=== PATIENT | female | born 1995 | race American Indian/Alaskan Native ===

== ENCOUNTER 2016-04-16 17:25 | Emergency (ER) | payer MEDICAID ==
[2016-04-16 18:17] LABS: Basophils % (Auto) 0.3 % (0.0-1.8); Eosinophils % (Auto) 3.1 % (0.0-4.3); Hematocrit 40.9 % (30.3-42.9); Hemoglobin 13.5 gm/dl (10.1-14.3); Mean Corpuscular HGB Conc 33 % (30-34); Mean Corpuscular Hemoglobin 31 pg (28-32); Mean Corpuscular Volume 95 fl (79-97); Platelet Count 289 K/mm3 (140-440); Red Blood Count 4.33 M/mm3 (3.65-5.03); Red Cell Distribution Width 13.8 % (13.2-15.2); White Blood Count 6.6 K/mm3 (4.5-11.0)
[2016-04-16 18:39] LABS: Alanine Aminotransferase 16 units/L (7-56); Albumin 4.1 g/dL (3.9-5); Albumin/Globulin Ratio 1.5 %; Alkaline Phosphatase 54 units/L (35-129); BUN/Creatinine Ratio 12.85; Bilirubin,Total 0.8 mg/dL (0.1-1.2); Blood Urea Nitrogen 9 mg/dL (7-17); Carbon Dioxide 28 mmol/L (22-30); Chloride 104.6 mmol/L (98-107); Glucose 89 mg/dL (65-100); Lipase 18 units/L (13-60); Potassium 4.1 mmol/L (3.6-5.0); Sodium 142 mmol/L (137-145); Total Protein 6.8 g/dL (6.3-8.2)
[2016-04-16 18:48] LABS: Anion Gap 14 mmol/L
[2016-04-16 20:08] LABS: Bilirubin,Urine NEG (Negative); Blood,Urine NEG (Negative); Ketones,Urine NEG (Negative); Leukocyte Esterase,Urine TR (Negative); Mucus,Urine 2+ /HPF; Nitrite,Urine NEG (Negative); Protein,Urine <15 mg/dL mg/dL (Negative)
[2016-04-17 04:42] VITALS: BP 126/64
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
== END 2016-04-17 07:10 | disposition home or self-care (01) ==
LOC: ED 17:25
DX: R10.30 Lower abdominal pain, unspecified (principal); F20.9 Schizophrenia, unspecified; Z91.14 Patient's other noncompliance with medication regimen; F31.9 Bipolar disorder, unspecified; F17.200 Nicotine dependence, unspecified, uncomplicated; F12.10 Cannabis abuse, uncomplicated; F14.10 Cocaine abuse, uncomplicated; Z91.040 Latex allergy status; Z91.018 Allergy to other foods
CPT/HCPCS: 36415; 80053; 81001; 83690; 84703; 85025; 87210; 87591; 99284

== ENCOUNTER 2016-12-30 15:26 | Emergency (ER) | payer MEDICAID ==
[2016-12-30 17:04] LABS: Basophils % (Auto) 0.5 % (0.0-1.8); Eosinophils % (Auto) 3.2 % (0.0-4.3); Hematocrit 41.3 % (30.3-42.9); Hemoglobin 13.7 gm/dl (10.1-14.3); Mean Corpuscular HGB Conc 33 % (30-34); Mean Corpuscular Hemoglobin 31 pg (28-32); Mean Corpuscular Volume 94 fl (79-97); Platelet Count 250 K/mm3 (140-440); Red Blood Count 4.39 M/mm3 (3.65-5.03); Red Cell Distribution Width 13.4 % (13.2-15.2); White Blood Count 7.9 K/mm3 (4.5-11.0)
[2016-12-30 17:22] LABS: Anion Gap 15 mmol/L; BUN/Creatinine Ratio 10; Blood Urea Nitrogen 6 mg/dL (7-17); Carbon Dioxide 23 mmol/L (22-30); Chloride 104.9 mmol/L (98-107); Glucose 100 mg/dL (65-100); Potassium 3.3 mmol/L (3.6-5.0); Sodium 140 mmol/L (137-145)
[2016-12-30 17:51] LABS: Urine Drugs of Abuse Note Disclamer
[2016-12-30 18:11] LABS: Bilirubin,Urine NEG (Negative); Blood,Urine NEG (Negative); Ketones,Urine NEG (Negative); Leukocyte Esterase,Urine NEG (Negative); Mucus,Urine 3+ /HPF; Nitrite,Urine NEG (Negative); WBC,Urine < 1.0 /HPF (0.0-6.0)
[2016-12-30] MEDS ORDERED: BOOSTRIX IM ONE (22:20)
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
[2016-12-30 23:09] LABS: Salicylate < 0.3 mg/dL (2.8-20.0); Valproate < 2.8 ug/mL (50-100)
--- NOTE | 2016-12-31 00:53 | Ultrasound Report ---
FINAL REPORT PROCEDURE: US OB TRANSVAGINAL TECHNIQUE: Real-time transvaginal sonography of the uterus, placenta, amniotic fluid, adnexa, and fetus was performed with image documentation. Measurements were obtained to determine age/size. M-mode Doppler was used to document heartbeat. CPT 58103 HISTORY: COMPARISON: No prior studies are available for comparison. FINDINGS: Small cystic fluid collection is seen in the endometrial canal near the fundus. There appears to be a double decidual reaction. pole and heartbeat are not identified. It may be too early to visualize these structures. Yolk sac is not visualized. Mean gestational sac measurement is 7.3 millimeters corresponding to an age of 5 weeks 3 days. No evidence of subchorionic hemorrhage. No uterine masses are identified. Right and left ovaries are visualized. 1.2 centimeters cyst visualized in the right ovary may represent corpus luteum cyst of the left ovary is unremarkable.. The right ovary measures 3.6 x 3.0 x 2.8 centimeter. The left ovary measures 2.8 x 2.0 x 2.1 centimeter. There is no evidence of subchorionic hemorrhage. IMPRESSION: A gestational sac appears to be present. By crown-rump length measurement estimated age is 5 weeks 3 days. pole heartbeat and yolk sac are not visualized. It may be too early to visualize the structures. I would suggest a follow-up ultrasound 7-10 days to evaluate for living intrauterine . Small cystic change visualize right ovary as described may represent corpus luteum cyst of . Ovaries are otherwise unremarkable.
--- NOTE | 2016-12-31 06:29 | Ultrasound Report ---
FINAL REPORT EXAM: US OB \T\lt; = 14 WEEKS FETUS HISTORY: TECHNIQUE: Transabdominal imaging was obtained of the pelvis. FINDINGS: There is an intrauterine sac-like structure in the fundus of the uterus corresponding to a 5 week 3 day . An embryo and yolk sac are not yet identified. There is no evidence of subchorionic hemorrhage. The right ovary measures 2.5 cm x 1.4 cm x 3.3 cm. Within the right ovary is a 1.1 cm functional cysts most likely representing corpus luteum cyst. The left ovary is not seen on the transabdominal images. Free fluid is not seen. IMPRESSION: Intrauterine gestational sac corresponding to 5 week 3 day . An embryo no sac are not seen yet. Follow-up study recommended in 2 weeks to confirm an intrauterine .
--- NOTE | 2016-12-31 07:31 | XRay Report ---
AP AND LATERAL CERVICAL SPINE: History: Neck pain from self manipulation. The vertebral bodies are well mineralized and normal in alignment and vertebral height with well preserved interspace distances. The visualized portions of the posterior elements are normal. IMPRESSION: Normal study.
--- NOTE | 2016-12-31 13:02 | Consultation ---
History of Present Illness - Reason for Consult Reason for consult: SI Medications and Allergies Allergies Allergy/AdvReac Type Severity Reaction Status Date / Time mushroom Allergy Swelling Verified 02/12/16 15:48 latex AdvReac DRY MOUTH Verified 02/12/16 15:48 / LOCAL IRRITATION Home Medications Medication Instructions Recorded Confirmed Last Taken Type Benadryl CAP 50 mg PO HS PRN 02/26/16 02/26/16 Unknown History Divalproex Sodium [Depakote] 250 mg PO BID #60 tablet. 04/17/16 Unknown Rx Ibuprofen [Motrin] 600 mg PO Q8H PRN #30 tablet 04/17/16 Unknown Rx QUEtiapine [SEROquel] 100 mg PO HS #30 tablet 04/17/16 Unknown Rx Mental Status Exam - Vital signs Last Vital Signs Temp 98.4 F 12/31/16 09:31 Pulse 85 12/31/16 09:31 Resp 14 12/31/16 10:42 BP 95/51 12/31/16 09:31 Pulse Ox 99 12/31/16 10:42 Results Result Diagrams: 12/30/16 16:50 12/30/16 16:50 Abnormal lab results 12/30/16 12/30/16 12/30/16 Range/Units 16:50 16:50 17:40 [place] % (Auto) 9.0 H (0.0-7.3) % Potassium 3.3 L (3.6-5.0) mmol/L BUN 6 L (7-17) mg/dL Creatinine 0.6 L (0.7-1.2) mg/dL HCG, Quant (0-4) mIU/mL Ur Specific [place] 1.032 H (1.003-1.030) U Epithel Cells (Auto) 14.0 H (0-13.0) /HPF Salicylates (2.8-20.0) mg/dL Valproic Acid (50-100) ug/mL 12/30/16 12/30/16 Range/Units 22:20 22:20 [place] % (Auto) (0.0-7.3) % Potassium (3.6-5.0) mmol/L BUN (7-17) mg/dL Creatinine (0.7-1.2) mg/dL HCG, Quant 4896 H (0-4) mIU/mL Ur Specific [place] (1.003-1.030) U Epithel Cells (Auto) (0-13.0) /HPF Salicylates < 0.3 L (2.8-20.0) mg/dL Valproic Acid < 2.8 L (50-100) ug/mL All other labs normal. Assessment and Plan Assessment and plan: CHIEF COMPLAINT IN PATIENTS WORDS: HISTORY OF PRESENT ILLNESS: This is a 22-year-old female with a past psychiatric history of major depression now presents secondary to recent expression of suicidal thoughts with recent self-injurious behaviors via cutting herself on her forearms. Patient was brought into the hospital by her mother. Patient was fairly guarded during the interview and could not identify specific precipitating events that have worsened her symptoms of depression. Patient is currently estimated to be about 5 weeks secondary to serum beta hCG and ultrasound. Currently patient denies suicidal thoughts. PSYCHIATRIC REVIEW OF SYSTEMS: Substance: UDS - Detoxification/Withdrawal: none noted Depression: Withdrawn, isolated, low moods. [place]: no labile moods, not hyperverbal, no flight of ideas Psychosis: no AVH, no thought disorder noted, no paranoia/grandiosity/erotomania Anxiety/ OCD/ PTSD: denies somatic symptoms, flashbacks, nightmares, avoidance, panic attacks Suicidality: denies SI Other Self-Injurious Behavior: none currently, recent SIB noted Violent/ Aggressive Behavior: none noted CURRENT MEDICATIONS: per medication reconciliation ALLERGIES: NKDA PAST PSYCHIATRIC HISTORY: Inpatient: none reported Outpatient: none reported Prior Suicide Attempts: denies Prior Self-Injurious Behaviors: denies PAST PSYCHIATRIC MEDICATION TRIALS: Depakote, lithium and Prozac MEDICAL HISTORY: Positive test MENTAL STATUS EXAM: General Appearance: Dressed in hospital gown, no acute distress Sensorium/Consciousness: alert and responding to external stimuli Eye Contact: limited Attitude / Behavior: cooperative, but guarded Psychomotor & Musculoskeletal Activity: WNL Mood: fine Affect: constricted Speech / Language: normal Thought Processes: organized, logical, linear, goal directed Thought Content: no SI, no HI Perception: no AVH Orientation: person, place, time, situation Judgment What would you do if you smelled smoke in a crowded movie theater?: poor/impulsive Insight: poor Intelligence Vocabulary, general fund of knowledge, educational level: Average Capacity of ADLs: Independent STRENGTHS: PSYCHOSOCIAL AND ENVIRONMENTAL STRESSORS: ASSESSMENT: Major depression severe recurrent PLAN OF CARE: Refer patient for inpatient hospitalization Review possible pharmacologic interventions and there side effects given the status prior to starting any psychotropics
[2016-12-31] MEDS ORDERED: BENADRYL IM ONE (20:00)
[2016-12-31] MEDS ORDERED: BENADRYL ONE (20:01)
[2017-01-01] MEDS ORDERED: BENADRYL IM ONE (17:15)
[2017-01-01] MEDS ORDERED: BENADRYL ONE (17:37)
--- NOTE | 2017-01-01 21:49 | Progress Note ---
Subjective - Reason for Consult Reason for consult: passive SI Mental Status Exam - Vital signs Last Vital Signs Temp 98.6 F 01/01/17 10:00 Pulse 94 H 01/01/17 10:00 Resp 16 01/01/17 10:00 BP 97/63 01/01/17 10:00 Pulse Ox 100 01/01/17 10:00 Assessment and Plan NO longer expressing SI today. Unsure is she is homeless or if she can transition back to mother's care. Currently, she has been referred to inpatient level of care, but because she is transfer to inpatient hospital will take time. MENTAL STATUS EXAM: General Appearance: Dressed in hospital gown, no acute distress Sensorium/Consciousness: alert and responding to external stimuli Eye Contact: limited Attitude / Behavior: cooperative, but guarded Psychomotor & Musculoskeletal Activity: WNL Mood: fine Affect: constricted Speech / Language: normal Thought Processes: organized, logical, linear, goal directed Thought Content: no SI, no HI Perception: no AVH Orientation: person, place, time, situation Judgment What would you do if you smelled smoke in a crowded movie theater?: poor/impulsive Insight: poor Intelligence Vocabulary, general fund of knowledge, educational level: Average Capacity of ADLs: Independent ASSESSMENT: Major depression severe recurrent PLAN OF CARE: Refer patient for inpatient hospitalization Review possible pharmacologic interventions and there side effects with the patient given the status prior to starting any psychotropics
--- NOTE | 2017-01-02 14:30 | Progress Note ---
Subjective - Reason for Consult Reason for consult: recent SI Mental Status Exam - Vital signs Last Vital Signs Temp 99.2 F 01/01/17 22:00 Pulse 85 01/01/17 22:00 Resp 18 01/02/17 13:09 BP 111/77 01/01/17 22:00 Pulse Ox 98 01/02/17 13:09 Assessment and Plan No longer expressing SI today. business and services instructor to engage mother to determine if the patient can return home. No AVH. MENTAL STATUS EXAM: General Appearance: Dressed in hospital gown, no acute distress Sensorium/Consciousness: alert and responding to external stimuli Eye Contact: limited Attitude / Behavior: cooperative, but guarded Psychomotor & Musculoskeletal Activity: WNL Mood: fine Affect: constricted Speech / Language: normal Thought Processes: organized, logical, linear, goal directed Thought Content: no SI, no HI Perception: no AVH Orientation: person, place, time, situation Judgment What would you do if you smelled smoke in a crowded movie theater?: poor/impulsive Insight: poor Intelligence Vocabulary, general fund of knowledge, educational level: Average Capacity of ADLs: Independent ASSESSMENT: Major depression severe recurrent PLAN OF CARE: Rescind 1013 Refer to outpatient mental health services that can coordinate pharmacotherapy in the context of a
[2017-01-02 15:03] VITALS: BP 90/61
--- NOTE | 2017-01-02 15:36 | Emergency Department Report ---
Blank Doc - Documentation Documentation: I was asked to prepare discharge paperwork for this patient by the psychiatrist , Dr. Kenney. This patient was seen by Dr. Kenney today and he has rescinded the patient's temperature in. He does not feel that the patient has displayed any further suicidal ideations and is low risk for discharge to home. She will be given referrals for the [facility], [facility], the PRINCIPAL TECHNICAL WRITER and encouraged to follow up with any other recommendations/referrals given by the psychiatric team.
== END 2017-01-02 17:57 | disposition home or self-care (01) ==
LOC: ED 15:26 → EEVIPCON 15:26 → ED 01-02 17:57
DX: O99.341 Other mental disorders complicating pregnancy, first trimester (principal); F20.9 Schizophrenia, unspecified; F31.9 Bipolar disorder, unspecified; F17.210 Nicotine dependence, cigarettes, uncomplicated; F14.10 Cocaine abuse, uncomplicated; Z3A.01 Less than 8 weeks gestation of pregnancy
CPT/HCPCS: 36415; 72040; 76801; 76817; 80048; 80164; 80307; 81001; 84702; 84703; 85025; 90471; 90715; 96372; 99285; G0480; J1200; 80320

== ENCOUNTER 2017-06-13 20:45 | Emergency (ER) | payer SELFPAY ==
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
[2017-06-14 00:19] LABS: Basophils % (Auto) 0.4 % (0.0-1.8); Eosinophils # (Auto) 0.1 K/mm3 (0.0-0.4); Eosinophils % (Auto) 0.7 % (0.0-4.3); Hematocrit 35.4 % (30.3-42.9); Hemoglobin 11.9 gm/dl (10.1-14.3); Lymphocytes # (Auto) 2.2 K/mm3 (1.2-5.4); Lymphocytes % (Auto) 23.4 % (13.4-35.0); Mean Corpuscular HGB Conc 34 % (30-34); Mean Corpuscular Hemoglobin 32 pg (28-32); Mean Corpuscular Volume 97 fl (79-97); Monocytes # (Auto) 0.7 K/mm3 (0.0-0.8); Monocytes % (Auto) 7.1 % (0.0-7.3); Platelet Count 250 K/mm3 (140-440); Red Blood Count 3.67 M/mm3 (3.65-5.03); Red Cell Distribution Width 13.9 % (13.2-15.2)
[2017-06-14 00:44] LABS: BUN/Creatinine Ratio 23; Blood Urea Nitrogen 7 mg/dL (7-17); Calcium 7.9 mg/dL (8.4-10.2); Creatine Kinase MB 3.2 ng/mL (0.0-4.0); Hemolysis Index 4
--- NOTE | 2017-06-14 02:35 | Cat Scan Report ---
FINAL REPORT PROCEDURE: CT ANGIO CHEST TECHNIQUE: Computerized tomographic angiography of the chest was performed after the IV injection of iodinated nonionic contrast including image processing. The image data was postprocessed using 2-dimensional multiplanar reformatted (MPR) and 3-dimensional (MIP and/or volume rendered) techniques. HISTORY: chest pain, shortness of breath COMPARISON: No prior studies are available for comparison. FINDINGS: Heart and pericardium: Normal. Thoracic aorta: Normal. Pulmonary vasculature: There is no evidence of pulmonary arterial emboli. Lymph nodes: No enlarged thoracic lymph nodes. Lungs: Normal. Pleural space: No effusion, thickening, or pneumothorax. Musculoskeletal structures: No significant abnormality. Upper abdominal structures: No significant abnormality. IMPRESSION: Normal Examination
--- NOTE | 2017-06-14 03:14 | Ultrasound Report ---
FINAL REPORT EXAM: US OB FOLLOW UP HISTORY: patient with chest pain. TECHNIQUE: Transabdominal sonographic evaluation was performed of the female pelvis with and without color Doppler imaging. PRIORS: Prior ultrasound 12/30/2016. FINDINGS: Measurements: BPD: 6.8 centimeters, 27 week 2 day ([place]) HC: 24.9 centimeters, 27 weeks 0 days ([place]) AC: 22.7 centimeter, 27 week 1 day ([place]) FL: 5.4 centimeter, 28 week 3 day ([place]) HC/AC: 1-10 LALITHA: 9.8 centimeters (normal range 7-24 centimeters). EFW grams: 1094 FHR: 160 bpm Cervical length 3.25 centimeters (Within normal limits). GA (AUA): 27 week 3 day Cephalic presentation. Anterior placental position. IMPRESSION: Single, viable intrauterine as above. Appropriate amniotic fluid index. age by ultrasound criteria 27 weeks 3 days.
[2017-06-14 04:10] VITALS: BP 108/75
== END 2017-06-14 04:10 | disposition home or self-care (01) ==
LOC: ED 20:45
DX: O26.892 Other specified pregnancy related conditions, second trimester (principal); R07.89 Other chest pain; R51 Headache; R06.02 Shortness of breath; O99.342 Other mental disorders complicating pregnancy, second trimester; F31.9 Bipolar disorder, unspecified; F20.9 Schizophrenia, unspecified; F14.10 Cocaine abuse, uncomplicated; O99.332 Smoking (tobacco) complicating pregnancy, second trimester; F17.200 Nicotine dependence, unspecified, uncomplicated; O16.2 Unspecified maternal hypertension, second trimester; Z3A.27 27 weeks gestation of pregnancy; Z87.820 Personal history of traumatic brain injury; Z91.018 Allergy to other foods; Z91.040 Latex allergy status
CPT/HCPCS: 36415; 71275; 76816; 80048; 82550; 82553; 84702; 85025; 85379; 93005; 93010; 99284; Q9967

== ENCOUNTER 2017-06-16 18:43 | Emergency (ER) | payer MEDICAID ==
[2017-06-16 18:55] VITALS: BP 123/67
== END 2017-06-16 21:24 | disposition left against medical advice (07) ==
LOC: ED 18:43
DX: Z53.21 Procedure and treatment not carried out due to patient leaving prior to being seen by health care provider (principal)

== ENCOUNTER 2017-06-23 14:31 | Outpatient (CLI) | payer MEDICAID, OTHER ==
[2017-06-23 15:50] VITALS: BP 104/60
[2017-06-23 16:56] LABS: Bacteria,Urine 1+ /HPF (Negative); Bilirubin,Urine NEG (Negative); Blood,Urine NEG (Negative); Color,Urine Yellow (Yellow); Mucus,Urine 1+ /HPF; Protein,Urine <15 mg/dL mg/dL (Negative); WBC,Urine < 1.0 /HPF (0.0-6.0)
[2017-06-23] MEDS ORDERED: LACTATED RINGERS 500 ML IV ONE (17:00)
[2017-06-23 18:28] LABS: Amphetamine Screen,Urine PRESUMPTIVE NEGATIVE; Benzodiazepines Screen,Urine PRESUMPTIVE NEGATIVE; Cocaine Screen,Urine PRESUMPTIVE NEGATIVE; Methadone Screen,Urine PRESUMPTIVE NEGATIVE; Opiate Screen,Urine PRESUMPTIVE NEGATIVE
[2017-06-23 19:14] LABS: Cannabinoid Screen,Urine PRESUMPTIVE POSITIVE
== END 2017-06-23 18:29 | disposition home or self-care (01) ==
LOC: EDSTATUS 15:15 → TRG 15:28
PROVIDERS: ATTEND Obstetrics & Gynecology
DX: O99.333 Smoking (tobacco) complicating pregnancy, third trimester (principal); F17.200 Nicotine dependence, unspecified, uncomplicated; Z79.899 Other long term (current) drug therapy; Z3A.28 28 weeks gestation of pregnancy
CPT/HCPCS: 59025; 80307; 81001

== ENCOUNTER 2017-06-25 08:19 | Emergency (ER) | payer MEDICAID ==
[2017-06-25 08:59] LABS: Basophils % (Auto) 0.3 % (0.0-1.8); Eosinophils % (Auto) 0.4 % (0.0-4.3); Hematocrit 37.4 % (30.3-42.9); Hemoglobin 12.7 gm/dl (10.1-14.3); Lymphocytes # (Auto) 1.6 K/mm3 (1.2-5.4); Lymphocytes % (Auto) 18.3 % (13.4-35.0); Mean Corpuscular HGB Conc 34 % (30-34); Mean Corpuscular Hemoglobin 33 pg (28-32); Mean Corpuscular Volume 96 fl (79-97); Monocytes # (Auto) 0.7 K/mm3 (0.0-0.8); Monocytes % (Auto) 7.8 % (0.0-7.3); Platelet Count 278 K/mm3 (140-440); Red Cell Distribution Width 14.3 % (13.2-15.2)
[2017-06-25 09:09] LABS: BUN/Creatinine Ratio 10; Blood Urea Nitrogen 3 mg/dL (7-17); Calcium 8.2 mg/dL (8.4-10.2); Hemolysis Index 4
[2017-06-25 09:19] LABS: Bilirubin,Urine NEG (Negative); Blood,Urine NEG (Negative); Color,Urine Yellow (Yellow); Protein,Urine <15 mg/dL mg/dL (Negative); Urobilinogen,Urine < 2.0 mg/dL (<2.0); WBC,Urine < 1.0 /HPF (0.0-6.0)
[2017-06-25 09:27] LABS: Amphetamine Screen,Urine PRESUMPTIVE NEGATIVE; Benzodiazepines Screen,Urine PRESUMPTIVE NEGATIVE; Cocaine Screen,Urine PRESUMPTIVE NEGATIVE; Methadone Screen,Urine PRESUMPTIVE NEGATIVE; Opiate Screen,Urine PRESUMPTIVE NEGATIVE
[2017-06-25 09:49] LABS: Cannabinoid Screen,Urine PRESUMPTIVE POSITIVE
[2017-06-25 11:19] LABS: HCG Qualitative,Urine Positive (Negative)
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
--- NOTE | 2017-06-25 12:52 | Ultrasound Report ---
OB ULTRASOUND GREATER THAN 14 WEEKS INDICATION: , auditory hallucinations. Confirm viability. COMPARISON: 06/14/2017 TECHNIQUE: Transabdominal grayscale ultrasound with Doppler interrogation. Gestation: Fish Position: Cephalic Amniotic Fluid: WNL (7-24 cm) LALITHA = 8.9 cm Placenta: Anterior, right lateral Placental Grade: I Heart Rate: 140 BPM Cervical length: 3.6 cm (Normal > 3 cm) NEUROANATOMY VISUALIZED: Choroid Plexus Cisterna Magnum Cerebellum Lateral Ventricle ANATOMY VISUALIZED: Stomach Kidneys Bladder Diaphragm 4 Chamber Heart Heart 3 Vessel Cord Abd. Cord Insert SPINE VISUALIZED: Longitudinal Transverse Limited spine due to position BPD: 7.2 cm = 28 w 6 d HC: 27 cm = 29 w 3 d AC: 24.6 cm = 28 w 6 d FL: 5.8 cm = 30 w 2 d HC/AC Ratio: 1.1 Cephalic Index: 77.7 Estimated Weight: 1382 grams Clinical age = 29 w 0 d EDC: 09/10/2017 US Gest. Age = 29 w 3 d EDC: 09/07/2017 CONCLUSION: Single, viable intrauterine gestation with ultrasound estimated age of 29 weeks and 3 days and EDC of 09/07/2017, currently in cephalic lie with details, as above. Thank you for the opportunity to participate in this patient's care.
--- NOTE | 2017-06-25 14:04 | Consultation ---
History of Present Illness - Reason for Consult Consult date: 06/25/17 Reason for consult: Mental Health Evaluation Requesting physician: CARINA MENDOZA - Chief Complaint Chief complaint: "Something is going on" - History of Present Psychiatric Illness 22-year-old female presenting with a chief complaint of hallucinations and homicidal ideations. Today the patient is calm and cooperative, but disorganized during the assessment. She could not logically say why she came to the hospital when asked. She was tangent during the interview and had to be redirected several times to keep her on topic. She stated that her left leg is "broken" and that she hear voices in her ear and nose. On observation, the patient left leg isn't fractured. She denies SI/HI's and VH's. She denies recreational drug use, but positive for marijuana. She could not confirm or deny alcohol consumption (etoh). Medications and Allergies Allergies Allergy/AdvReac Type Severity Reaction Status Date / Time mushroom Allergy Swelling Verified 02/12/16 15:48 latex AdvReac DRY MOUTH Verified 02/12/16 15:48 / LOCAL IRRITATION Home Medications Medication Instructions Recorded Confirmed Last Taken Type Benadryl CAP 50 mg PO HS PRN 02/26/16 12/31/16 Unknown History Divalproex Sodium [Depakote] 250 mg PO BID #60 tablet. 04/17/16 12/31/16 Unknown Rx Ibuprofen [Motrin] 600 mg PO Q8H PRN #30 tablet 04/17/16 12/31/16 Unknown Rx QUEtiapine [SEROquel] 100 mg PO HS #30 tablet 04/17/16 12/31/16 Unknown Rx Past psychiatric history - Past Medical History Past Medical History: other (Currently ) Past Surgical History: No surgical history - past Psychiatric treatment and history psychiatric treatment history: Multiple inpatient psy settings. The patient cannot confirm or deny a fam psy hx. - Social History Social history: Lives alone Mental Status Exam - Vital signs Last Vital Signs Temp 98.6 F 06/25/17 08:32 Pulse 88 06/25/17 08:32 Resp 16 06/25/17 08:32 BP 118/78 06/25/17 08:32 Pulse Ox 99 06/25/17 08:32 - Exam Narrative exam: MSE: Appearance: calm Behavior: regular eye contact Speech: regular rate and tone Mood: "okay" Affect: normal Thought Process: tangential Thought Content: denies SI/HI's and VH's, delusional, disorganized Motor Activity: sitting up in bed Cognition: A/O x3 Insight: poor Judgment: poor Results Result Diagrams: 06/25/17 08:48 06/25/17 08:48 Abnormal lab results 06/25/17 06/25/17 06/25/17 Range/Units 08:48 08:48 08:48 MCH (28-32) pg [place] % (Auto) (0.0-7.3) % Seg Neutrophils % (40.0-70.0) % BUN 3 L (7-17) mg/dL Creatinine 0.3 L (0.7-1.2) mg/dL Calcium 8.2 L (8.4-10.2) mg/dL Urine HCG, Qual (Negative) Salicylates < 0.3 L (2.8-20.0) mg/dL Acetaminophen < 5.0 L (10.0-30.0) ug/mL 06/25/17 06/25/17 Range/Units 08:48 09:00 MCH 33 H (28-32) pg [place] % (Auto) 7.8 H (0.0-7.3) % Seg Neutrophils % 73.2 H (40.0-70.0) % BUN (7-17) mg/dL Creatinine (0.7-1.2) mg/dL Calcium (8.4-10.2) mg/dL Urine HCG, Qual Positive A (Negative) Salicylates (2.8-20.0) mg/dL Acetaminophen (10.0-30.0) ug/mL All other labs normal. Assessment and Plan Assessment and plan: Impression: Unspecified Psychosis. Cannabis Use DO. Today the patient is calm and cooperative, but disorganized during the assessment. The patient is 29 weeks and 3 days . DDx: R/O Bipolar DO, R/O Schizophrenia, R/O Substance Induced Psychosis Recommendation/Plan: Continue 1013 with placement to inpatient psy services. Start Haldol 5 mg Po HS for psychosis. Discussed possible EPS symptoms of Haldol with patient. Chose Haldol other than a 2nd generation antipsychotic because of possible financial constraints once discharged. Discusses the importance to abstain from recreational drug use with patient.
[2017-06-25] MEDS: HALDOL PO SCH (22:56)
--- NOTE | 2017-06-26 13:21 | Progress Note ---
Subjective - Reason for Consult Consult date: 06/26/17 Reason for consult: Psychiatry Follow-up - Chief Complaint Chief complaint: "I am okay" 22-year-old female presenting with a chief complaint of hallucinations and homicidal ideations. Today the patient is calm, but still disorganized during the assessment. She was unable to tell me why she came to the ER. She had to be redirected several times to keep her on topic. She did state getting rest last night. She denies any side effects of her medication. Mental Status Exam - Vital signs Last Vital Signs Temp 97.3 F L 06/25/17 21:34 Pulse 65 06/25/17 21:34 Resp 18 06/25/17 21:34 BP 138/88 06/25/17 21:34 Pulse Ox 100 06/25/17 21:34 - Exam Narrative exam: MSE: Appearance: calm Behavior: regular eye contact Speech: regular rate and tone Mood: "okay" Affect: normal Thought Process: tangential Thought Content: denies SI/HI's and VH's, disorganized Motor Activity: sitting up in bed Cognition: A/O x3 Insight: poor Judgment: poor Assessment and Plan Impression: Unspecified Psychosis. Cannabis Use DO. Today the patient is calm and cooperative, but still disorganized during the assessment. The patient is 29 weeks and 3 days . DDx: R/O Bipolar DO, R/O Schizophrenia, R/O Substance Induced Psychosis Recommendation/Plan: Continue 1013 with placement to inpatient psy services. Continue Haldol 5 mg PO HS for psychosis. Discussed possible EPS symptoms of Haldol with patient. Chose Haldol other than a 2nd generation antipsychotic because of possible financial constraints once discharged. Discusses the importance to abstain from recreational drug use with patient.
[2017-06-26] MEDS: HALDOL PO SCH (22:15)
[2017-06-27] MEDS: HALDOL PO SCH (22:02)
[2017-06-28] MEDS ORDERED: TRIPLE ANTIBIOTIC TP ONE (08:31)
--- NOTE | 2017-06-28 16:57 | Progress Note ---
Subjective - Reason for Consult Consult date: 07/05/17 Reason for consult: Psychiatric Follow-up Evaluation - Chief Complaint Chief complaint: "I'm feeling great." Wanda is a 22-year-old female who presents with a chief complaint of hallucinations and homicidal ideations. Today the patient is anxious and euthymic. She states " I seen the baby. I found out I'm 30 weeks . I'm excited." Patient reports good sleep, good appetite, and good energy. She states " I don't want to take any medication because I'm . When I have the baby I'll restart medication." Mental Status Exam - Vital signs Last Vital Signs Temp 98.3 F 06/28/17 12:56 Pulse 95 H 06/28/17 12:56 Resp 18 06/28/17 12:56 BP 112/69 06/28/17 12:56 Pulse Ox 99 06/28/17 12:56 - Exam Narrative exam: Mental Status Exam: Appearance: Casually dressed-hospital gown Attitude/Behavior: Cooperative Sensorium: Distracted Orientation: Alert and oriented x 4 ( person, place, time, and situation) Speech: Normal rate and tone Mood: "I'm feeling great." Affect: Constricted Thought Process: Tangential Thought Content: Reality oriented Motor Activity: Ambulatory Insight: Poor Judgment: Poor Suicidal ideation/plan: Patient denies. Homicidal ideation/plan: Patient denies. Assessment and Plan Impression: Unspecified Psychosis. Cannabis Use DO. Today, patient is cooperative, anxious, and euthymic. Thought process is tangential. Patient verbalizes that she no longer wants to take medication (anti-psychotropics) and will restart after giving to her daughter. DDx: R/O Bipolar DO, R/O Schizophrenia, R/O Substance Induced Psychosis Recommendation/Plan: 1. Continue 1013 with placement to inpatient psychiatric services. 2. Provider will give patient 24 hours to determine if she wants to continue medication. If not, provider will discontinue Haldol 5 mg PO HS for psychosis. Discussed possible EPS symptoms of Haldol with patient. Chose Haldol other than a 2nd generation antipsychotic because of possible financial constraints once discharged. Discusses the importance to abstain from recreational drug use with patient.
--- NOTE | 2017-06-28 20:37 | Ultrasound Report ---
FINAL REPORT EXAM: US OB FOLLOW UP HISTORY: abdominal pain COMPARISON: June 14, 2017. TECHNIQUE: Several real-time grayscale and color Doppler images were obtained. FINDINGS: Single live IUP. Estimated gestational age 30 weeks 0 days. Estimated delivery date September 06, 2017. Estimated delivery date not provided on prior exam report. heart rate 160 beats per minute. Estimated weight 1553 grams. BPD 7.6 centimeters 30 weeks 0 days. Head circumference 27.6 centimeters 30 weeks 0 days. Abdominal circumference 26.6 centimeters 30 weeks 4 days. Femoral length 5.7 centimeters 29 weeks 6 days. LALITHA 8.6 centimeters within normal limits. presentation is cephalic. Placenta location anterior. No placenta previa. The cervix is closed and measures 3.1 centimeters in length. Full anatomic survey not performed. IMPRESSION: Single live IUP. Estimated gestational age 30 weeks 0 days. Estimated delivery date September 06, 2017. No gross or placental abnormality demonstrated.
[2017-06-28] MEDS: HALDOL PO SCH (21:44)
[2017-06-29] MEDS ORDERED: ZOFRAN ODT ONE (08:40)
[2017-06-29] MEDS ORDERED: ZOFRAN ODT PO ONE (09:02)
--- NOTE | 2017-06-29 12:57 | Progress Note ---
Subjective - Reason for Consult Consult date: 06/29/17 Reason for consult: Psychiatry Follow-up - Chief Complaint Chief complaint: "I am better" 22-year-old female presenting with a chief complaint of hallucinations and homicidal ideations. Today the patient is calm and cooperative, but delusional during the assessment. This is the first time the patient has been lucid during the interview. She stated that she resides with her boyfriend, but her mother Mell Verma is her payee. She stated that she use [facility] for her outpatient med/psy services. She denies SI/HI's and AVH's. She denies any side effects of her medication. Mental Status Exam - Vital signs Last Vital Signs Temp 98.1 F 06/28/17 22:00 Pulse 94 H 06/28/17 22:00 Resp 18 06/28/17 22:00 BP 105/56 06/28/17 22:00 Pulse Ox 98 06/28/17 22:00 - Exam Narrative exam: MSE: Appearance: calm, cooperative Behavior: regular eye contact Speech: regular rate and tone Mood: "okay" Affect: normal Thought Process: circumstantial Thought Content: denies SI/HI's and AVH's Motor Activity: sitting up in bed Cognition: A/O x3 Insight: variable Judgment: fair Assessment and Plan Impression: Unspecified Psychosis. Cannabis Use DO. Today the patient is calm and cooperative during the assessment. The patient is 29 weeks and 3 days . DDx: R/O Bipolar DO, R/O Schizophrenia, R/O Substance Induced Psychosis Recommendation/Plan: Evaluate 1013 in 24 hours to determine proper dispo. Continue Haldol 5 mg PO HS for psychosis. Discussed possible EPS symptoms of Haldol with patient. Chose Haldol other than a 2nd generation antipsychotic because of possible financial constraints once discharged. Discusses the importance to abstain from recreational drug use with patient.
[2017-06-29] MEDS: HALDOL PO SCH (22:25)
--- NOTE | 2017-06-30 10:40 | Progress Note ---
Subjective - Reason for Consult Consult date: 06/30/17 Reason for consult: Psychiatry Follow-up - Chief Complaint Chief complaint: "Can I leave today" 22-year-old female presenting with a chief complaint of hallucinations and homicidal ideations. Today the patient is calm and cooperative during the assessment. The patient is more organized and had a plan for herself once discharged. She stated that she will follow up with [facility] for care and outpatient psy services. She denies SI/HI's and AVH's. She denies any side effects of her medication. She stated that she is homeless. Mental Status Exam - Vital signs Last Vital Signs Temp 98.4 F 06/29/17 22:00 Pulse 68 06/29/17 22:00 Resp 18 06/29/17 22:00 BP 109/70 06/29/17 22:00 Pulse Ox 98 06/29/17 22:00 - Exam Narrative exam: MSE: Appearance: calm, cooperative Behavior: regular eye contact Speech: regular rate and tone Mood: "okay" Affect: normal Thought Process: linear Thought Content: denies SI/HI's and AVH's Motor Activity: sitting up in bed Cognition: A/O x3 Insight: fair Judgment: fair Assessment and Plan Impression: Unspecified Psychosis. Cannabis Use DO. Today the patient is calm and cooperative during the assessment. The patient is 29 weeks and 3 days . DDx: R/O Bipolar DO, R/O Schizophrenia, R/O Substance Induced Psychosis Recommendation/Plan: Rescind 1013. Continue Haldol 5 mg PO HS for psychosis. Discussed possible EPS symptoms of Haldol with patient. Chose Haldol other than a 2nd generation antipsychotic because of possible financial constraints once discharged. Discusses the importance to abstain from recreational drug use with patient. The patient can follow up at [facility] for outpatient psy services. The patient is homeless, [employer] involvement needed.
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
[2017-06-30 11:31] VITALS: BP 100/61
== END 2017-06-30 11:52 | disposition home or self-care (01) ==
LOC: EEVIPCON 08:19 → ED 08:19
DX: O99.343 Other mental disorders complicating pregnancy, third trimester (principal); F20.9 Schizophrenia, unspecified; R45.850 Homicidal ideations; Z3A.29 29 weeks gestation of pregnancy; J45.909 Unspecified asthma, uncomplicated; O99.333 Smoking (tobacco) complicating pregnancy, third trimester; F12.10 Cannabis abuse, uncomplicated
CPT/HCPCS: 36415; 76805; 76816; 80048; 80307; 81001; 81025; 85025; 99285; G0480; 80320; A6250; Q0162

== ENCOUNTER 2017-07-06 20:17 | Outpatient (CLI) | payer MEDICAID ==
[2017-07-06] MEDS ORDERED: LACTATED RINGERS 500 ML IV ONE (20:41)
[2017-07-06 22:30] VITALS: BP 116/65
--- NOTE | 2017-07-06 22:56 | Ultrasound Report ---
FINAL REPORT PROCEDURE: US OB BPP WO NON-STRESS TECHNIQUE: Sonographic evaluation for breathing, movement, tone, and amniotic fluid volume was performed. CPT 83178 HISTORY: wellbeing COMPARISON: No prior studies are available for comparison. FINDINGS: Single live intrauterine gestation with a heart rate of 173 beats per minute Amniotic fluid volume: Normal-score 2. At least one vertical pocket > 2 cm or more in vertical axis. breathing: Normal-score 2. movement: Normal-score 2. tone: Normal. Score: 8 of 8. IMPRESSION: Normal biophysical profile.
== END 2017-07-06 22:20 | disposition home or self-care (01) ==
LOC: TRG 20:17 → LD 20:18 → TRG 22:20
PROVIDERS: ATTEND Obstetrics & Gynecology
DX: O47.03 False labor before 37 completed weeks of gestation, third trimester (principal); Z3A.30 30 weeks gestation of pregnancy
CPT/HCPCS: 59025; 76819

== ENCOUNTER 2017-07-08 04:28 | Outpatient (CLI) | payer MEDICAID ==
[2017-07-08] MEDS ORDERED: LACTATED RINGERS 500 ML IV ONE (05:32)
== END 2017-07-08 05:45 | disposition home or self-care (01) ==
LOC: LD 04:28 → TRG 04:28
PROVIDERS: ATTEND Obstetrics & Gynecology
DX: O47.03 False labor before 37 completed weeks of gestation, third trimester (principal); Z3A.36 36 weeks gestation of pregnancy
CPT/HCPCS: 59025; J7120

== ENCOUNTER 2017-07-08 07:18 | Emergency (ER) | payer MEDICAID ==
[2017-07-08 07:32] VITALS: BP 121/51
--- NOTE | 2017-07-08 09:27 | Emergency Department Report ---
Blank Doc - Documentation Documentation: Patient is a 22-year-old female who is 31 weeks who is presenting with "some itching in her private area". Patient is homeless states she has no vertigo spelled a lot of walking and states she has some pain in bilateral feet as well. Patient was already seen at labor and delivery this morning and the baby was cleared. There was no urinalysis or pelvic performed this morning. Patient denies dysuria or vaginal discharge at this time. Patient states is just itching sensation in her groin. Patient has no other complaints at this time. Patient denies any fevers chills nausea vomiting diarrhea. Urinalysis will performed rule out UTI
[2017-07-08 12:43] LABS: Bacteria,Urine 1+ /HPF (Negative); Bilirubin,Urine NEG (Negative); Blood,Urine NEG (Negative); Color,Urine Yellow (Yellow); Mucus,Urine FEW /HPF; Protein,Urine <15 mg/dL mg/dL (Negative); Urobilinogen,Urine < 2.0 mg/dL (<2.0)
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
[2017-07-08] MEDS ORDERED: DIFLUCAN PO ONE (15:00)
== END 2017-07-08 14:04 | disposition home or self-care (01) ==
LOC: ED 07:18
DX: O23.593 Infection of other part of genital tract in pregnancy, third trimester (principal); O99.343 Other mental disorders complicating pregnancy, third trimester; F31.9 Bipolar disorder, unspecified; F20.9 Schizophrenia, unspecified; F90.9 Attention-deficit hyperactivity disorder, unspecified type; O99.513 Diseases of the respiratory system complicating pregnancy, third trimester; J45.909 Unspecified asthma, uncomplicated; Z3A.31 31 weeks gestation of pregnancy; Z91.040 Latex allergy status; Z91.018 Allergy to other foods; Z59.0 Homelessness; Z87.820 Personal history of traumatic brain injury
CPT/HCPCS: 81001; 99283

== ENCOUNTER 2017-07-13 13:59 | Outpatient (CLI) | payer MEDICAID ==
[2017-07-13 15:04] LABS: Bilirubin,Urine NEG (Negative); Blood,Urine SM (Negative); Color,Urine Yellow (Yellow); Mucus,Urine FEW /HPF
[2017-07-13 15:13] LABS: Amphetamine Screen,Urine PRESUMPTIVE NEGATIVE; Benzodiazepines Screen,Urine PRESUMPTIVE NEGATIVE; Cocaine Screen,Urine PRESUMPTIVE NEGATIVE; Methadone Screen,Urine PRESUMPTIVE NEGATIVE; Opiate Screen,Urine PRESUMPTIVE NEGATIVE
[2017-07-13 15:25] LABS: Cannabinoid Screen,Urine PRESUMPTIVE POSITIVE
[2017-07-13] MEDS: LACTATED RINGERS 500 ML IV ONE (15:36)
[2017-07-13] MEDS ORDERED: LACTATED RINGERS 1,000 ML IV SCH (16:00)
== END 2017-07-13 16:49 | disposition home or self-care (01) ==
LOC: TRG 13:59
PROVIDERS: ATTEND Obstetrics & Gynecology
DX: O47.03 False labor before 37 completed weeks of gestation, third trimester (principal); Z3A.31 31 weeks gestation of pregnancy
CPT/HCPCS: 59025; 80307; 81001; J7120

== ENCOUNTER 2017-07-15 17:39 | Outpatient (CLI) | payer MEDICAID ==
[2017-07-15 18:34] VITALS: BP 109/64
== END 2017-07-15 23:00 | disposition left against medical advice (07) ==
LOC: TRG 17:39
PROVIDERS: ATTEND Obstetrics & Gynecology
DX: O47.03 False labor before 37 completed weeks of gestation, third trimester (principal); Z3A.31 31 weeks gestation of pregnancy
CPT/HCPCS: 59025

== ENCOUNTER 2017-07-17 12:42 | Emergency (ER) | payer MEDICAID ==
[2017-07-17 13:22] LABS: Basophils % (Auto) 0.5 % (0.0-1.8); Eosinophils % (Auto) 0.6 % (0.0-4.3); Hematocrit 37.8 % (30.3-42.9); Hemoglobin 12.8 gm/dl (10.1-14.3); Lymphocytes # (Auto) 1.9 K/mm3 (1.2-5.4); Lymphocytes % (Auto) 25.1 % (13.4-35.0); Mean Corpuscular HGB Conc 34 % (30-34); Mean Corpuscular Hemoglobin 33 pg (28-32); Mean Corpuscular Volume 96 fl (79-97); Monocytes # (Auto) 0.7 K/mm3 (0.0-0.8); Monocytes % (Auto) 9.3 % (0.0-7.3); Platelet Count 261 K/mm3 (140-440); Red Blood Count 3.95 M/mm3 (3.65-5.03); Red Cell Distribution Width 13.1 % (13.2-15.2)
[2017-07-17 13:33] LABS: BUN/Creatinine Ratio 13; Blood Urea Nitrogen 5 mg/dL (7-17); Calcium 8.2 mg/dL (8.4-10.2); Hemolysis Index 15
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
[2017-07-17 14:05] LABS: Bacteria,Urine 1+ /HPF (Negative); Bilirubin,Urine NEG (Negative); Blood,Urine NEG (Negative); Color,Urine Yellow (Yellow); Mucus,Urine FEW /HPF; Protein,Urine <15 mg/dL mg/dL (Negative); WBC,Urine < 1.0 /HPF (0.0-6.0)
[2017-07-17 14:12] LABS: Amphetamine Screen,Urine PRESUMPTIVE NEGATIVE; Benzodiazepines Screen,Urine PRESUMPTIVE NEGATIVE; Cocaine Screen,Urine PRESUMPTIVE NEGATIVE; Methadone Screen,Urine PRESUMPTIVE NEGATIVE; Opiate Screen,Urine PRESUMPTIVE NEGATIVE
[2017-07-17 14:28] LABS: Cannabinoid Screen,Urine PRESUMPTIVE POSITIVE
[2017-07-17 15:45] VITALS: BP 132/74
== END 2017-07-17 15:24 | disposition home or self-care (01) ==
LOC: ED 12:42
DX: O99.343 Other mental disorders complicating pregnancy, third trimester (principal); F43.9 Reaction to severe stress, unspecified; F20.9 Schizophrenia, unspecified; F31.9 Bipolar disorder, unspecified; F90.9 Attention-deficit hyperactivity disorder, unspecified type; O99.513 Diseases of the respiratory system complicating pregnancy, third trimester; J45.909 Unspecified asthma, uncomplicated; O99.333 Smoking (tobacco) complicating pregnancy, third trimester; Z79.899 Other long term (current) drug therapy; Z91.018 Allergy to other foods; Z91.040 Latex allergy status; Z3A.31 31 weeks gestation of pregnancy
CPT/HCPCS: 36415; 80048; 80307; 81001; 85025; 99284; G0480; 80320

== ENCOUNTER 2017-07-22 12:17 | Outpatient (CLI) | payer MEDICAID ==
[2017-07-22] MEDS ORDERED: LACTATED RINGERS 500 ML IV ONE (13:07)
[2017-07-22 14:17] VITALS: BP 99/57
== END 2017-07-22 14:30 | disposition home or self-care (01) ==
LOC: TRG 12:17
PROVIDERS: ATTEND Obstetrics & Gynecology
DX: O99.333 Smoking (tobacco) complicating pregnancy, third trimester (principal); F17.200 Nicotine dependence, unspecified, uncomplicated; O47.03 False labor before 37 completed weeks of gestation, third trimester; Z3A.32 32 weeks gestation of pregnancy
CPT/HCPCS: 59025; J7120

== ENCOUNTER 2017-09-13 15:06 | Emergency (ER) | payer MEDICAID ==
[2017-09-13 15:20] VITALS: BP 120/75
[2017-09-13 16:11] LABS: Bilirubin,Urine NEG (Negative); Blood,Urine SM (Negative); Color,Urine Yellow (Yellow); Protein,Urine <15 mg/dL mg/dL (Negative); Urobilinogen,Urine < 2.0 mg/dL (<2.0)
== END 2017-09-13 16:37 ==
LOC: ED 15:06
DX: R07.81 Pleurodynia (principal); Z53.21 Procedure and treatment not carried out due to patient leaving prior to being seen by health care provider
CPT/HCPCS: 81001

== ENCOUNTER 2017-10-14 18:06 | Emergency (ER) | payer MEDICAID ==
[2017-10-14 19:14] LABS: Basophils # (Auto) 0.1 K/mm3 (0.0-0.1); Basophils % (Auto) 1.4 % (0.0-1.8); Eosinophils # (Auto) 0.1 K/mm3 (0.0-0.4); Eosinophils % (Auto) 1.7 % (0.0-4.3); Hematocrit 44.1 % (30.3-42.9); Hemoglobin 14.7 gm/dl (10.1-14.3); Lymphocytes # (Auto) 2.5 K/mm3 (1.2-5.4); Lymphocytes % (Auto) 36.2 % (13.4-35.0); Mean Corpuscular HGB Conc 33 % (30-34); Mean Corpuscular Hemoglobin 33 pg (28-32); Mean Corpuscular Volume 97 fl (79-97); Monocytes # (Auto) 0.5 K/mm3 (0.0-0.8); Platelet Count 315 K/mm3 (140-440); Red Blood Count 4.54 M/mm3 (3.65-5.03); Red Cell Distribution Width 14.1 % (13.2-15.2)
[2017-10-14 19:25] LABS: BUN/Creatinine Ratio 11; Blood Urea Nitrogen 9 mg/dL (7-17); Calcium 9.2 mg/dL (8.4-10.2); Hemolysis Index 18
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
[2017-10-14 20:58] LABS: Bacteria,Urine 1+ /HPF (Negative); Bilirubin,Urine NEG (Negative); Blood,Urine MOD (Negative); Color,Urine Yellow (Yellow); Mucus,Urine 1+ /HPF; Urobilinogen,Urine < 2.0 mg/dL (<2.0)
[2017-10-14 21:02] LABS: Amphetamine Screen,Urine PRESUMPTIVE NEGATIVE; Benzodiazepines Screen,Urine PRESUMPTIVE NEGATIVE; Cocaine Screen,Urine PRESUMPTIVE NEGATIVE; Methadone Screen,Urine PRESUMPTIVE NEGATIVE; Opiate Screen,Urine PRESUMPTIVE NEGATIVE
[2017-10-14 21:24] LABS: Cannabinoid Screen,Urine PRESUMPTIVE POSITIVE
[2017-10-14] MEDS ORDERED: TYLENOL ONE (22:45)
[2017-10-14] MEDS ORDERED: TYLENOL PO ONE (23:40)
[2017-10-15 11:16] VITALS: BP 112/90
[2017-10-15] MEDS ORDERED: GEODON IM ONE (13:52)
[2017-10-15] MEDS ORDERED: WATER FOR INJ (PF) ONE (13:54)
--- NOTE | 2017-10-15 16:29 | Consultation ---
History of Present Illness - Reason for Consult Consult date: 10/15/17 Reason for consult: Mental Health Evaluation Requesting physician: SINDI GRANDE - Chief Complaint Chief complaint: "The world is talking to me" - History of Present Psychiatric Illness 22 y.o. AA female presenting to the ER for acute psychosis. Today the patient is tangent and delusional during the assessment. This patient is known to me. She stated that her has schizophrenia and bipolar do. She stated that the world is speaking to her constantly. She had to be redirected several times to keep her on topic. She stated that she came to the hospital to get medication for herself and her . She was asked several more questions, but her answers were not logical. This patient is a poor historian at this time. No gestures of SI/HI's. Medications and Allergies Allergies Allergy/AdvReac Type Severity Reaction Status Date / Time mushroom Allergy Swelling Verified 07/08/17 07:28 latex AdvReac DRY MOUTH Verified 07/08/17 07:28 / LOCAL IRRITATION Home Medications Medication Instructions Recorded Confirmed Last Taken Type No Known Home Medications [No 07/15/17 07/15/17 Unknown History Reported Home Medications] Past psychiatric history - Past Medical History Past Medical History: other (Asthma) Past Surgical History: No surgical history - past Psychiatric treatment and history psychiatric treatment history: Several inpatient psy setting. The patient is cannot confirm or deny a fam psy hx. Mental Status Exam - Vital signs Last Vital Signs Temp 98.2 F 10/15/17 10:00 Pulse 70 10/15/17 10:00 Resp 18 10/15/17 13:19 BP 112/90 10/15/17 10:00 Pulse Ox 98 10/15/17 13:19 - Exam Narrative exam: MSE: Appearance: cooperative Behavior: regular eye contact Speech: regular rate and tone, hyper verbal Mood: "okay" Affect: congruent to mood Thought Process: tangential Thought Content: no gestures of SI/HI's, grandiose, delusional Motor Activity: sitting up in bed Cognition: A/O x 3 Insight: poor Judgment: poor Results Result Diagrams: 10/14/17 18:48 10/14/17 18:48 Abnormal lab results 10/14/17 10/14/17 10/14/17 Range/Units 18:48 18:48 18:48 Hgb (10.1-14.3) gm/dl Hct (30.3-42.9) % MCH (28-32) pg Lymph % (Auto) (13.4-35.0) % [place] % (Auto) (0.0-7.3) % Glucose 112 H (65-100) mg/dL Urine WBC (Auto) (0.0-6.0) /HPF Salicylates < 0.3 L (2.8-20.0) mg/dL Acetaminophen < 5.0 L (10.0-30.0) ug/mL 10/14/17 10/14/17 Range/Units 18:48 20:30 Hgb 14.7 H (10.1-14.3) gm/dl Hct 44.1 H (30.3-42.9) % MCH 33 H (28-32) pg Lymph % (Auto) 36.2 H (13.4-35.0) % [place] % (Auto) 8.0 H (0.0-7.3) % Glucose (65-100) mg/dL Urine WBC (Auto) 9.0 H (0.0-6.0) /HPF Salicylates (2.8-20.0) mg/dL Acetaminophen (10.0-30.0) ug/mL All other labs normal. Assessment and Plan Assessment and plan: Impression: Unspecified Psychosis. Cannabis Use DO. Today the patient is tangent and delusional during the assessment. DDx: Bipolar DO with psychosis, R/O Schizophrenia, R/O Substance Induced Psychosis Recommendation/Plan: Continue 1013 with placement to [facility] today.
== END 2017-10-15 16:59 ==
LOC: EEVIPCON 18:06 → ED 18:06
DX: F23 Brief psychotic disorder (principal); F31.9 Bipolar disorder, unspecified; F90.9 Attention-deficit hyperactivity disorder, unspecified type; J45.909 Unspecified asthma, uncomplicated; F17.200 Nicotine dependence, unspecified, uncomplicated
CPT/HCPCS: 36415; 80048; 80307; 81001; 84703; 85025; 96372; 99285; G0480; J3486; 80320

== ENCOUNTER 2018-08-03 22:51 | Emergency (ER) | payer MEDICAID ==
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
[2018-08-04 04:37] VITALS: BP 106/52
== END 2018-08-04 04:38 | disposition home or self-care (01) ==
LOC: ED 22:51
DX: S96.911A Strain of unspecified muscle and tendon at ankle and foot level, right foot, initial encounter (principal); F17.200 Nicotine dependence, unspecified, uncomplicated; J45.909 Unspecified asthma, uncomplicated; F31.9 Bipolar disorder, unspecified; F90.9 Attention-deficit hyperactivity disorder, unspecified type; Z91.018 Allergy to other foods; Z91.040 Latex allergy status; V89.2XXA Person injured in unspecified motor-vehicle accident, traffic, initial encounter; Y93.89 Activity, other specified; Y92.488 Other paved roadways as the place of occurrence of the external cause; Y99.8 Other external cause status
CPT/HCPCS: 99282

== ENCOUNTER 2018-10-02 07:57 | Emergency (ER) | payer MEDICAID ==
[2018-10-02 08:05] VITALS: BP 112/66
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
== END 2018-10-02 08:53 | disposition home or self-care (01) ==
LOC: ED 07:57
DX: G89.29 Other chronic pain (principal); M54.9 Dorsalgia, unspecified; F20.9 Schizophrenia, unspecified; Z76.0 Encounter for issue of repeat prescription; F31.9 Bipolar disorder, unspecified; J45.909 Unspecified asthma, uncomplicated; F12.90 Cannabis use, unspecified, uncomplicated; Z79.899 Other long term (current) drug therapy; Z91.040 Latex allergy status; Z91.018 Allergy to other foods
CPT/HCPCS: 99283

== ENCOUNTER 2018-10-03 12:10 | Emergency (ER) | payer MEDICAID ==
[2018-10-03 12:46] VITALS: BP 113/66
--- NOTE | 2018-10-03 12:47 | Event Note ---
ED Screening Note Date of service: 10/03/18 Time: 12:45 ED Screening Note: 23 y/o female comes for reported pain but refuse to answer questions on why she is here. This initial assessment/diagnostic orders/clinical plan/treatment(s) is/are subject to change based on patients health status, clinical progression and re- assessment by fellow clinical providers in the ED. Further treatment and workup at subsequent clinical providers discretion. Patient/guardian urged not to elope from the ED as their condition may be serious if not clinically assessed and managed. Initial orders include:
== END 2018-10-03 12:46 ==
LOC: ED 12:10
DX: M79.671 Pain in right foot (principal); M54.5 Low back pain
CPT/HCPCS: 99282

== ENCOUNTER 2018-11-18 13:20 | Emergency (ER) | payer MEDICAID ==
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
[2018-11-18 14:57] LABS: Basophils # (Auto) 0.1 K/mm3 (0.0-0.1); Basophils % (Auto) 0.6 % (0.0-1.8); Eosinophils # (Auto) 0.1 K/mm3 (0.0-0.4); Eosinophils % (Auto) 0.7 % (0.0-4.3); Hematocrit 40.7 % (30.3-42.9); Hemoglobin 13.7 gm/dl (10.1-14.3); Lymphocytes # (Auto) 2.5 K/mm3 (1.2-5.4); Lymphocytes % (Auto) 27.8 % (13.4-35.0); Mean Corpuscular HGB Conc 34 % (30-34); Mean Corpuscular Volume 95 fl (79-97); Monocytes # (Auto) 1.2 K/mm3 (0.0-0.8); Monocytes % (Auto) 12.8 % (0.0-7.3); Platelet Count 257 K/mm3 (140-440); Red Cell Distribution Width 13.9 % (13.2-15.2)
[2018-11-18 15:16] LABS: Alanine Aminotransferase 14 units/L (7-56); Albumin 3.7 g/dL (3.9-5); BUN/Creatinine Ratio 13; Blood Urea Nitrogen 10 mg/dL (7-17); Calcium 8.6 mg/dL (8.4-10.2); Hemolysis Index 11
[2018-11-18 17:09] LABS: Bilirubin,Urine NEG (Negative); Blood,Urine LG (Negative); Color,Urine Yellow (Yellow); Mucus,Urine 3+ /HPF
[2018-11-18 17:13] LABS: Amphetamine Screen,Urine PRESUMPTIVE NEGATIVE; Benzodiazepines Screen,Urine PRESUMPTIVE NEGATIVE; Methadone Screen,Urine PRESUMPTIVE NEGATIVE; Opiate Screen,Urine PRESUMPTIVE NEGATIVE
[2018-11-18 17:36] LABS: Cannabinoid Screen,Urine PRESUMPTIVE POSITIVE; Cocaine Screen,Urine PRESUMPTIVE POSITIVE
[2018-11-18] MEDS ORDERED: ATIVAN IM ONE (18:33)
[2018-11-18] MEDS ORDERED: GEODON IM ONE (18:33)
[2018-11-18 20:10] VITALS: BP 96/52
== END 2018-11-19 00:44 ==
LOC: ED 13:20
DX: F20.9 Schizophrenia, unspecified (principal); R44.0 Auditory hallucinations; R45.850 Homicidal ideations; F31.9 Bipolar disorder, unspecified; J45.909 Unspecified asthma, uncomplicated; F17.200 Nicotine dependence, unspecified, uncomplicated; Z91.040 Latex allergy status; Z79.899 Other long term (current) drug therapy
CPT/HCPCS: 36415; 80053; 80307; 81001; 84703; 85025; 87086; 96372; 99285; J2060; J3486; 80320; G0480

== ENCOUNTER 2020-06-13 01:23 | Emergency (ER) | payer MEDICAID ==
[2020-06-13 06:15] LABS: Basophils % (Auto) 0.7 % (0.0-1.8); Eosinophils # (Auto) 0.1 K/mm3 (0.0-0.4); Eosinophils % (Auto) 1.3 % (0.0-4.3); Hematocrit 35.3 % (30.3-42.9); Hemoglobin 11.9 gm/dl (10.1-14.3); Lymphocytes # (Auto) 2.7 K/mm3 (1.2-5.4); Lymphocytes % (Auto) 44.5 % (13.4-35.0); Mean Corpuscular HGB Conc 34 % (30-34); Mean Corpuscular Volume 94 fl (79-97); Monocytes # (Auto) 0.7 K/mm3 (0.0-0.8); Platelet Count 222 K/mm3 (140-440); Red Blood Count 3.74 M/mm3 (3.65-5.03); Red Cell Distribution Width 13.6 % (13.2-15.2)
[2020-06-13 06:42] LABS: Blood Urea Nitrogen 7 mg/dL (7-17); Calcium 8.3 mg/dL (8.4-10.2); Hemolysis Index 2
[2020-06-13 06:44] LABS: BUN/Creatinine Ratio 10
[2020-06-13] MEDS ORDERED: ALBUTEROL SULFATE 90 MCG INHALATION PRN (07:27)
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
[2020-06-13] MEDS ORDERED: ZOLOFT 50 MG PO SCH (10:00)
[2020-06-13] MEDS ORDERED: NON-FORMULARY EACH (Seroquel 300 MG) PO SCH (10:00)
[2020-06-13] MEDS ORDERED: DIVALPROEX ER 250 MG TAB PO SCH (10:00)
[2020-06-13] MEDS ORDERED: QUEtiapine 200 MG TAB ONE (10:48)
[2020-06-13] MEDS: SERTRALINE 50 MG TAB PO SCH (11:08)
[2020-06-13] MEDS: QUEtiapine 100 MG TAB PO SCH ×2 (11:08→22:30)
[2020-06-13] MEDS: DIVALPROEX ER 500 MG TAB PO SCH (11:08)
--- NOTE | 2020-06-13 12:39 | Consultation ---
History of Present Illness - Reason for Consult Consult date: 06/13/20 - History of Present Psychiatric Illness GP History & Physical - History of Present Illness Date of admission: 06/12/20 Date of Examination: 06/13/20 Reason for Admission: For home medication refill and with the complain of auditory hallucinations History of Present Illness: Per ED Note: Patient ambulated to the unit accompanied by Staff, patient stated that she is her for medication refill and stated that she has auditory and visual hallucinations, patient denies SI or HI, no SS of distress noted, will continue to monitor. Wanda Cummings is a 25 year old female. She is a single mom and living with her sister. She showed because of run out of her home medications and complain of auditory hallucinations with the history of bipolar and schizophrenia. The patient is alert, cooperative and replied questions appropriately. the persistent detailed she was hearing voices that saying her "i am getting to murder you; i am having sex along with your daughter". Also, she said " i have a frog in my stomach, and i am hearing that they saying they are reaching to take it out the frog i have in my stomach". The patient denies the current visual hallucinations but had visual hallucinations last week, seeing things such as "ghosts and colors". The patient denies paranoia, thought interference and no features suggestive of hypomania or nabila. The patient completely denies suicidal or homicidal thoughts. TPAST PSYCHIATRIC HISTORY: Diagnoses: Bipolar and schizophrenia Suicide attempts or Self-harm behavior: Denies Prior psychiatric hospitalizations: yes Substance Abuse history: denies Previous psychiatric medications tried: yes Outpatient treatment: yes PAST MEDICAL HISTORY: None reported Family Psychiatric History: None reported or documented SOCIAL HISTORY Marital Status: Single Living Arrangements: With sister Employment Status: Disabled Access to guns/weapons: Denies Education: high school History of Abuse: Denies Legal History: Denies REVIEW OF SYSTEMS Constitutional: Negative for weight loss ENT: Negative for staider Respiratory: Negative for cough or hemoptysis All other systems reviewed and are negative MENTAL STATUS EXAMINATION General Appearance and Behavior: Age appropriate, good hygiene, good eye contact, cooperative and polite with questioning. Cooperation: Participating Psychomotor Behavior: Psychomotor normal Mood: "Ok" Affect and affective range: Flat Thought Process: Goal directed Speech: Normal tone and pace Intellectual Functioning: Average Thought Content Suicidal Ideation: Denies Homicidal Ideation: Denies Hallucinations: yes Delusions: None elicited Impulse Control: Impaired Insight and Judgment: Limited insight and judgment Memory: Normal Attention: Divided attention impaired Orientation: A/o x 3 Assessment and Plan (1) Bipolar Disorder Current Visit: Yes Status: Acute Treatment Plan Patient admitted for inpatient psychiatric evaluation, medication adjustment and close monitoring The patient's behavior, mood, sleep and appetite will be closely monitored. Patient enrolled in individual and group therapeutic sessions and encouraged to attend. Patient provided with a safe and structured environment. Patient's physical health needs will be addressed by the Hospitalist. Hospitalist Consulted Labs including CBC, CMP, Lipid profile and Hemoglobin A1C levels ordered for baseline reference Social Assessment will be completed and the Manager Desktop will work with patient and family to ensure a suitable and safe disposition Medication adjustment will be made as clinically indicated Depakote DR 1,500mg po QDAY Quetiapin Fumarate 300 mg PO BID Setraline HCL 50 mg PO QDAY Usual Wellness Mandaen/Preservation: The patient agreed on the treatment plan, understood the risk, benefit, alternative treatment, potential consequence of no treatment, and gave informed consent. Estimated days: Post hospital care: primary care provider, psychiatric provider Case staffed with Dr. Borges Legal Status: Voluntary Reaction to Hospitalization: Medications and Allergies Allergies Allergy/AdvReac Type Severity Reaction Status Date / Time mushroom Allergy Swelling Verified 07/08/17 07:28 latex AdvReac DRY MOUTH Verified 07/08/17 07:28 / LOCAL IRRITATION Home Medications Medication Instructions Recorded Confirmed Last Taken Type Albuterol Sulfate 90 mcg INHALATION Q8HR PRN 06/13/20 06/13/20 Unknown History Depakote ER 1,500 mg PO QHS 06/13/20 06/13/20 06/12/20 17:00 History Divalproex ER [DepaKOTE ER] 1,500 mg PO DAILY 06/13/20 06/12/20 07:00 History Divalproex ER [DepaKOTE ER] 1,500 mg PO QDAY #90 tablet 06/13/20 Unknown Rx Quetiapine Fumarate [SEROquel] 300 mg PO BID #60 tablet 06/13/20 Unknown Rx SEROquel 300 mg PO BID 06/13/20 06/13/20 06/12/20 07:00 History Sertraline [Zoloft] 50 mg PO QDAY #30 tablet 06/13/20 Unknown Rx Zoloft 50 mg PO DAILY 06/13/20 06/13/20 Unknown History metFORMIN 1,500 mg PO QHS 06/13/20 06/13/20 06/12/20 07:00 History Active Meds: Active Medications Divalproex Sodium (Divalproex Er 500 Mg Tab) 1,500 mg PO QDAY [facility] Last Admin: 06/13/20 11:08 Dose: 1,500 mg Documented by: Miscellaneous Medication (Albuterol Sulfate) 90 mcg INHALATION Q8HR PRN PRN Reason: Shortness Of Breath Quetiapine Fumarate (Quetiapine 100 Mg Tab) 300 mg PO BID [facility] Last Admin: 06/13/20 11:08 Dose: 300 mg Documented by: Sertraline HCl (Sertraline 50 Mg Tab) 50 mg PO QDAY [facility] Last Admin: 06/13/20 11:08 Dose: 50 mg Documented by: Mental Status Exam - Vital signs Last Vital Signs Temp 97.9 F 06/13/20 09:38 Pulse 88 06/13/20 09:38 Resp 18 06/13/20 09:38 BP 98/56 06/13/20 09:38 Pulse Ox 100 06/13/20 09:38 Results Result Diagrams: 06/13/20 05:52 06/13/20 05:52 Abnormal lab results 06/13/20 06/13/20 06/13/20 Range/Units 05:52 05:52 05:52 Lymph % (Auto) 44.5 H (13.4-35.0) % Christian % (Auto) 11.0 H (0.0-7.3) % Calcium 8.3 L (8.4-10.2) mg/dL Salicylates < 0.3 L (2.8-20.0) mg/dL Acetaminophen (10.0-30.0) ug/mL 06/13/20 Range/Units 05:52 Lymph % (Auto) (13.4-35.0) % Christian % (Auto) (0.0-7.3) % Calcium (8.4-10.2) mg/dL Salicylates (2.8-20.0) mg/dL Acetaminophen 5.0 L (10.0-30.0) ug/mL All other labs normal.
[2020-06-13 14:33] LABS: Amphetamine Screen,Urine Negative; Benzodiazepines Screen,Urine Negative; Cannabinoid Screen,Urine Negative; Cocaine Screen,Urine Negative; Methadone Screen,Urine Negative; Opiate Screen,Urine Negative
[2020-06-13] MEDS ORDERED: METFORMIN 1500 MG PO SCH (22:00)
[2020-06-14 04:12] VITALS: BP 110/73
[2020-06-14 05:53] LABS: Bilirubin,Urine NEG (Negative); Blood,Urine LG (Negative); Color,Urine Yellow (Yellow); Mucus,Urine FEW /HPF
--- NOTE | 2020-06-14 10:30 | Progress Note ---
Subjective - Reason for Consult Consult date: 06/14/20 Reason for consult: off meds - Chief Complaint Chief complaint: The patient was seen today. She is lying down. She verbalizes being tired. She says "I had been off my meds." The patient denies SI/HI. SHe also denies hallucinations. She says "I feel better now that I started my medications." REVIEW OF SYSTEMS Constitutional: Negative for weight loss ENT: Negative for staider Respiratory: Negative for cough or hemoptysis All other systems reviewed and are negative MENTAL STATUS EXAMINATION General Appearance and Behavior: Age appropriate, good hygiene, good eye contact, cooperative and polite with questioning. Cooperation: Participating Psychomotor Behavior: Psychomotor normal Mood: "Ok, better" Affect and affective range: Congruent with stated mood Thought Process: Goal directed Speech: Normal tone and pace Intellectual Functioning: Average Thought Content Suicidal Ideation: Denies Homicidal Ideation: Denies Hallucinations: Denies Delusions: None elicited Impulse Control: Impaired Insight and Judgment: Limited insight and judgment Memory: Normal Attention: Divided attention impaired Orientation: A/o x 3 Assessment and Plan (1) Bipolar Disorder Current Visit: Yes Status: Acute Treatment Plan Alisha DUNHAM 1,500mg po QDAY Quetiapin Fumarate 300 mg PO BID Setraline HCL 50 mg PO QDAY Sitter: Defer to primary Medical: Per primary Disposition: Do not recommend acute psychiatric inpatient treatment. Consumer Loan Manager to place resources Will sign off. Case staffed with Dr. Borges Mental Status Exam - Vital signs Last Vital Signs Temp 98.3 F 06/14/20 02:00 Pulse 77 06/14/20 02:00 Resp 18 06/14/20 02:00 BP 110/73 06/14/20 02:00 Pulse Ox 98 06/14/20 02:00
[2020-06-14] MEDS: QUEtiapine 100 MG TAB PO SCH (10:41)
[2020-06-14] MEDS: DIVALPROEX ER 500 MG TAB PO SCH (10:41)
[2020-06-14] MEDS: SERTRALINE 50 MG TAB PO SCH (10:41)
== END 2020-06-14 13:16 | disposition home or self-care (01) ==
LOC: ED 01:23 → EEVIPCON 01:23 → ED 06-14 13:16
DX: F20.9 Schizophrenia, unspecified (principal); Z20.822 Contact with and (suspected) exposure to COVID-19; J45.909 Unspecified asthma, uncomplicated; F32.9 Major depressive disorder, single episode, unspecified; Z98.890 Other specified postprocedural states; Z79.899 Other long term (current) drug therapy; Z91.040 Latex allergy status; Z91.018 Allergy to other foods
CPT/HCPCS: 36415; 80048; 80307; 81001; 84703; 85025; 87086; 99284; J3246; U0003; 80320; G0480

== ENCOUNTER 2020-06-19 11:06 | Emergency (ER) | payer MEDICAID ==
[2020-06-19 11:17] VITALS: BP 114/77
== END 2020-06-19 20:40 | disposition left against medical advice (07) ==
LOC: ED 11:06
DX: E86.0 Dehydration (principal); Z53.21 Procedure and treatment not carried out due to patient leaving prior to being seen by health care provider

== ENCOUNTER 2020-06-30 13:26 | Emergency (ER) | payer MEDICAID ==
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
[2020-06-30 14:45] LABS: Amphetamine Screen,Urine Negative; Benzodiazepines Screen,Urine Negative; Methadone Screen,Urine Negative; Opiate Screen,Urine Negative
[2020-06-30 14:47] LABS: Bilirubin,Urine NEG (Negative); Blood,Urine NEG (Negative); Color,Urine Yellow (Yellow); Mucus,Urine 3+ /HPF
[2020-06-30 15:04] LABS: Cannabinoid Screen,Urine PRESUMPTIVE POSITIVE; Cocaine Screen,Urine PRESUMPTIVE POSITIVE
[2020-06-30] MEDS ORDERED: ZIPRASIDONE MESYLATE 20 MG VIAL IM ONE ×2 (15:15→15:50)
[2020-06-30 15:35] LABS: Basophils % (Auto) 0.6 % (0.0-1.8); Eosinophils % (Auto) 0.7 % (0.0-4.3); Hematocrit 40.8 % (30.3-42.9); Hemoglobin 13.8 gm/dl (10.1-14.3); Lymphocytes # (Auto) 1.5 K/mm3 (1.2-5.4); Lymphocytes % (Auto) 29.4 % (13.4-35.0); Mean Corpuscular HGB Conc 34 % (30-34); Mean Corpuscular Volume 98 fl (79-97); Monocytes # (Auto) 0.4 K/mm3 (0.0-0.8); Monocytes % (Auto) 8.3 % (0.0-7.3); Platelet Count 299 K/mm3 (140-440); Red Blood Count 4.16 M/mm3 (3.65-5.03); Red Cell Distribution Width 14.5 % (13.2-15.2)
[2020-06-30 15:43] LABS: Blood Urea Nitrogen 6 mg/dL (7-17); Hemolysis Index 6
[2020-06-30 15:56] LABS: BUN/Creatinine Ratio 9
[2020-06-30] MEDS ORDERED: HALOPERIDOL LACTATE 5 MG/1 ML INJ ONE (17:40)
[2020-06-30] MEDS ORDERED: LORazepam 2 MG/ML VIAL ONE (17:41)
[2020-06-30] MEDS ORDERED: HALOPERIDOL LACTATE 5 MG/1 ML INJ IM ONE (18:00)
[2020-06-30] MEDS ORDERED: LORazepam 2 MG/ML VIAL IM ONE (18:00)
--- NOTE | 2020-07-01 10:02 | Consultation ---
History of Present Illness - Reason for Consult Consult date: 07/01/20 Reason for consult: mhe Requesting physician: ABNER CORREA - History of Present Psychiatric Illness Per ED Provider: Patient is 25-year-old female with history of schizophrenia. Patient presented to the ER stating that she is out of her psychiatric medication for the last 2-month. Patient stated that she has been suicidal for the last few days but today she is not suicidal. Patient stated that she also thought about killing the people who get her out of the hospital. Patient is very loud and laughed inappropriately. Patient denied any auditory or visual hallucination. PSYCH HPI Patient is a 25-year-old, single, unemployed on SSI -[place] female who resides in a nursing home with past psychiatric history of bipolar, schizophrenia and ADHD, and past medical history of asthma who presented to the ED requesting for medication refill claiming that she has been out of her medication for the last 2 months and also expressing homicidal thoughts. Patient reports she came here because she wanted to get her psych medications, she states she was instructed and given Geodon and Ativan. Patient states she was not allowed they just decided to treat her based on how they felt. Patient is denying SI HI AVH. Patient reports she only wants her medications so that she can leave. Collateral: Per documentation patient was just recently discharged with medications on the of last , was given a month supply, initial presentation to the ED patient was very agitated and disruptive, for this reason recommend inpatient treatment PAST PSYCHIATRIC HISTORY Diagnoses: Bipolar, schizophrenia, ADHD Suicide attempts or Self-harm behavior: no Prior psychiatric hospitalizations: yes Substance Abuse history: crack Previous psychiatric medications tried: Seroquel, Depakote, Zyprexa and Zoloft Outpatient treatment: None reported PAST MEDICAL HISTORY: Asthma Family Psychiatric History: None reported or documented SOCIAL HISTORY Marital Status: Single Living Arrangements: care home Employment Status: [employer] Access to guns/weapons: None reported Education: 12th grade History of Abuse: None report Legal History: Yes REVIEW OF SYSTEMS Constitutional: Negative for weight loss ENT: Negative for stridor Respiratory: Negative for cough or hemoptysis All other systems reviewed and are negative MENTAL STATUS EXAMINATION General Appearance and Behavior: Age appropriate, good hygiene, wearing appropriate clothes, poor eye contact, cooperativeirritable with questioning. Cooperation: Hostile and Guarded Psychomotor Behavior: Psychomotor agitation Mood: so-so Affect and affective range: Angry, dysthymic, Thought Process:Circumstantial, Illogical, Thought Content: Obsessions, Hallucinations including auditory, visual, Paranoid Speech: difficulty to understand, confused and blocking Intellectual Functioning: fair Suicidal Ideation: Denies SI Homicidal Ideation: Homicidal Impulse Control: Impaired Insight and Judgment: Impaired Memory: Short term memory impaired, Attention: Divided attention impaired Orientation: Alert, oriented Diagnoses: Assessment and Plan - Psychiatric problem (1) Schizophrenia Current Visit: No Status: Acute Treatment Plan MEDICATIONS: Risks, benefits and alternatives of medications discussed with the patient, questions answered and consent obtained from patient. PSYCHOTHERAPY: Supportive psychotherapy provided MEDICAL: Per primary team DELIRIUM PRECAUTIONS: Please re-orient patient frequently, keep lights on during the day, and minimize benzodiazepines and opiates as these medications could worsen patient's confusion. 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 Case discussed with Dr. Borges who agrees with current disposition LEGAL STATUS: 1013 FOLLOW-UP: Will follow Thank you for the consult. Please contact with any questions and/or concerns. Medications and Allergies Allergies Allergy/AdvReac Type Severity Reaction Status Date / Time mushroom Allergy Swelling Verified 06/30/20 14:00 latex AdvReac DRY MOUTH Verified 06/30/20 14:00 / LOCAL IRRITATION Home Medications Medication Instructions Recorded Confirmed Last Taken Type Albuterol Sulfate 90 mcg INHALATION Q8HR PRN 06/13/20 06/13/20 Unknown History Depakote ER 1,500 mg PO QHS 06/13/20 06/13/20 06/12/20 17:00 History Divalproex ER [DepaKOTE ER] 1,500 mg PO DAILY 06/13/20 06/12/20 07:00 History Divalproex ER [DepaKOTE ER] 1,500 mg PO QDAY #90 tablet 06/13/20 Unknown Rx Quetiapine Fumarate [SEROquel] 300 mg PO BID #60 tablet 06/13/20 Unknown Rx SEROquel 300 mg PO BID 06/13/20 06/13/20 06/12/20 07:00 History Sertraline [Zoloft] 50 mg PO QDAY #30 tablet 06/13/20 Unknown Rx Zoloft 50 mg PO DAILY 03/31/21 03/31/21 Unknown History metFORMIN 1,500 mg PO QHS 06/13/20 06/13/20 06/12/20 07:00 History Mental Status Exam - Vital signs Last Vital Signs Temp 97.4 F L 07/01/20 04:00 Pulse 105 H 07/01/20 04:00 Resp 19 07/01/20 04:00 BP 126/85 07/01/20 04:00 Pulse Ox 99 07/01/20 04:00 Results Result Diagrams: 06/30/20 14:48 06/30/20 14:48 Abnormal lab results 06/30/20 06/30/20 06/30/20 Range/Units 14:25 14:48 14:48 MCV 98 H (79-97) fl MCH 33 H (28-32) pg [place] % (Auto) 8.3 H (0.0-7.3) % Potassium 3.5 L (3.6-5.0) mmol/L BUN 6 L (7-17) mg/dL Glucose 110 H (65-100) mg/dL U Epithel Cells (Auto) 17.0 H (0-13.0) /HPF Salicylates (2.8-20.0) mg/dL Acetaminophen (10.0-30.0) ug/mL 06/30/20 06/30/20 Range/Units 14:48 14:48 MCV (79-97) fl MCH (28-32) pg [place] % (Auto) (0.0-7.3) % Potassium (3.6-5.0) mmol/L BUN (7-17) mg/dL Glucose (65-100) mg/dL U Epithel Cells (Auto) (0-13.0) /HPF Salicylates < 0.3 L (2.8-20.0) mg/dL Acetaminophen 5.0 L (10.0-30.0) ug/mL All other labs normal. Assessment and Plan - Psychiatric problem (1) Schizophrenia Current Visit: No Status: Acute
[2020-07-01] MEDS ORDERED: LORazepam 2 MG/ML VIAL IM ONE (18:30)
[2020-07-01] MEDS ORDERED: ZIPRASIDONE MESYLATE 20 MG VIAL IM ONE (18:30)
[2020-07-01] MEDS ORDERED: WATER FOR INJ Sterile (PF) 10 ML ONE (18:32)
[2020-07-02 09:00] VITALS: BP 101/69
--- NOTE | 2020-07-02 09:28 | Progress Note ---
Subjective - Reason for Consult Consult date: 07/02/20 Reason for consult: MHE Requesting physician: JOSE POND - Chief Complaint Chief complaint: Psych Progress Patient seen this AM in ED, Patient states the reason she was unable to turkey picker her last rx was primarily due to insurance issues because she didnt have her medicaid number with her. SHe states she has that sorted, and if given medications today she will go straight to [facility]. She denies SI, HI or AVH. REVIEW OF SYSTEMS Constitutional: Negative for weight loss ENT: Negative for stridor Respiratory: Negative for cough or hemoptysis All other systems reviewed and are negative MENTAL STATUS EXAMINATION General Appearance and Behavior: Age appropriate, good hygiene, wearing appropriate clothes, good eye contact, cooperative polite with questioning. Cooperation: Participating/engaged Psychomotor Behavior: unremarkable and within normal limits Mood: Good Affect and affective range: congruent with mood Thought Process: Fluent/Logical, Thought Content: Within reality, Speech: Normal volume, Regular rate and rhythm, Intellectual Functioning: Average Suicidal Ideation: Denies SI Homicidal Ideation: Denies HI Impulse Control: Unimpaired Insight and Judgment: Normal insight and judgment, Memory: Normal, Attention: Normal, Orientation: Alert, oriented, Diagnoses: Assessment and Plan - Psychiatric problem (1) Schizophrenia Current Visit: No Status: Acute Treatment Plan' Home meds refilled MEDICATIONS: Risks, benefits and alternatives of medications discussed with the patient, questions answered and consent obtained from patient. PSYCHOTHERAPY: Supportive psychotherapy provided MEDICAL: Per primary team DELIRIUM PRECAUTIONS: Please re-orient patient frequently, keep lights on during the day, and minimize benzodiazepines and opiates as these medications could worsen patient's confusion. 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 Case discussed with Dr. Borges who agrees with current disposition LEGAL STATUS: 1013 rescinded FOLLOW-UP: Will sign off Thank you for the consult. Please contact with any questions and/or concerns. Mental Status Exam - Vital signs Last Vital Signs Temp 98.7 F 07/02/20 08:59 Pulse 88 07/02/20 08:59 Resp 20 07/02/20 08:59 BP 101/69 07/02/20 08:59 Pulse Ox 98 07/02/20 08:59 Assessment and Plan - Patient Problems (1) Schizophrenia Current Visit: No Status: Acute
== END 2020-07-02 14:00 | disposition home or self-care (01) ==
LOC: ED 13:26
DX: F25.0 Schizoaffective disorder, bipolar type (principal); F25.1 Schizoaffective disorder, depressive type; J45.909 Unspecified asthma, uncomplicated; F17.200 Nicotine dependence, unspecified, uncomplicated; Z79.899 Other long term (current) drug therapy; Z98.890 Other specified postprocedural states; Z91.040 Latex allergy status; Z91.018 Allergy to other foods
CPT/HCPCS: 36415; 80048; 80307; 81001; 84703; 85025; 96372; 99284; J1630; J2060; J3486; 80320; G0480

== ENCOUNTER 2020-07-14 20:48 | Emergency (ER) | payer MEDICAID | END 2020-07-14 20:50 | disposition left against medical advice (07) | LOC: ED 20:48 | DX: Z53.21 Procedure and treatment not carried out due to patient leaving prior to being seen by health care provider (principal) ==

== ENCOUNTER 2020-07-16 12:59 | Emergency (ER) | payer MEDICAID ==
[2020-07-16 15:19] VITALS: BP 133/83
== END 2020-07-16 16:15 | disposition left against medical advice (07) ==
LOC: ED 12:59
DX: R05 Cough (principal); Z53.21 Procedure and treatment not carried out due to patient leaving prior to being seen by health care provider

== ENCOUNTER 2020-07-30 01:50 | Emergency (ER) | payer MEDICAID | END 2020-07-30 01:55 | disposition left against medical advice (07) | LOC: ED 01:50 | DX: R05 Cough (principal); L75.0 Bromhidrosis; Z53.21 Procedure and treatment not carried out due to patient leaving prior to being seen by health care provider ==

== ENCOUNTER 2020-08-06 13:36 | Emergency (ER) | payer MEDICAID ==
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
[2020-08-06 16:48] LABS: HCG Qualitative,Urine Negative (Negative)
--- NOTE | 2020-08-06 17:17 | XRay Report ---
LUMBAR SPINE 3 VIEWS INDICATION / CLINICAL INFORMATION: pain. COMPARISON: None available. FINDINGS: No significant skeletal abnormality. Alignment is normal. Signer Name: Serg Almeida MD FACR Signed: 08/06/2020 5:13 PM Workstation Name: [id number]
[2020-08-06 18:17] VITALS: BP 132/72
== END 2020-08-06 18:40 | disposition home or self-care (01) ==
LOC: ED 13:36
DX: M54.5 Low back pain (principal); F25.0 Schizoaffective disorder, bipolar type; F25.1 Schizoaffective disorder, depressive type; J45.909 Unspecified asthma, uncomplicated; F17.200 Nicotine dependence, unspecified, uncomplicated; Z76.0 Encounter for issue of repeat prescription; Z98.890 Other specified postprocedural states; Z79.899 Other long term (current) drug therapy; Z91.040 Latex allergy status; Z91.018 Allergy to other foods
CPT/HCPCS: 72100; 81025

== ENCOUNTER 2020-08-06 21:28 | Emergency (ER) | payer MEDICAID | END 2020-08-06 22:53 | LOC: ED 21:28 | DX: R10.9 Unspecified abdominal pain (principal); Z53.21 Procedure and treatment not carried out due to patient leaving prior to being seen by health care provider ==

== ENCOUNTER 2020-08-07 06:36 | Emergency (ER) | payer MEDICAID ==
[2020-08-07 07:44] VITALS: BP 109/78
== END 2020-08-07 09:33 ==
LOC: ED 06:36
DX: M79.603 Pain in arm, unspecified (principal); M79.606 Pain in leg, unspecified; Z53.21 Procedure and treatment not carried out due to patient leaving prior to being seen by health care provider

== ENCOUNTER 2020-08-07 09:55 | Emergency (ER) | payer MEDICAID ==
[2020-08-07 11:55] VITALS: BP 111/66
--- NOTE | 2020-08-07 12:38 | Emergency Department Report ---
Chief Complaint: Medical Clearance Stated Complaint: MENTAL HEALH Time Seen by Provider: 08/07/20 11:56 - HPI History of Present Illness: Ms. Verma is a 25-year-old female with a history of schizophrenia and bipolar disorder who returns to the ED after being evaluated yesterday by this provider stating that she lost all her medication and would like a copy of her discharge report and medication. Patient is not complaining of any medical complaints today. Patient also does not complain of any psychiatric illness or complaints. Patient simply stating that she lost her discharge packet and would like a copy of her medications and her paperwork. - ROS Review of Systems: As noted in HPI - Exam Vital Signs: Vital Signs 08/07/20 11:54 Temperature 98.2 F Pulse Rate 91 H Respiratory 18 Rate Blood Pressure 111/66 [Right] O2 Sat by Pulse 100 Oximetry Physical Exam: GENERAL: Alert and oriented x3, no apparent distress, Normal Gait, atraumatic. HEAD: Head is normocephalic and a-traumatic. SKIN: Warm and dry, No lesions, No ulceration or induration present. MSE screening note: Focused history and physical exam performed. Due to findings the following was ordered: ED Medical Decision Making - Medical Decision Making Patient presents with no medical emergency or psychiatric illness. Patient speaking in clear sentences. She is in no acute distress. Patient stating that she just needs her paperwork and prescriptions. Prescriptions were electronically sent to the pharmacy with exception of Depakote. So as to avoid the loss of paperwork again. ED Disposition for MSE Clinical Impression: Medication refill Disposition: - TO HOME OR SELFCARE Is pt being admited?: No Does the pt Need Aspirin: No Condition: Stable Prescriptions: Divalproex ER [Depakote ER] 250 mg PO DAILY #20 Quetiapine Fumarate [SEROquel] 300 mg PO BID #60 tablet Sertraline [Zoloft] 50 mg PO QDAY #30 tablet Referrals: PRIMARY CARE, [Primary Care Provider] - 3-5 Days Time of Disposition: 14:28
== END 2020-08-07 14:49 | disposition home or self-care (01) ==
LOC: ED 09:55
DX: F20.9 Schizophrenia, unspecified (principal); Z76.0 Encounter for issue of repeat prescription
CPT/HCPCS: 99281

== ENCOUNTER 2020-08-08 10:09 | Emergency (ER) | payer MEDICAID ==
[2020-08-08 10:49] VITALS: BP 148/89
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
== END 2020-08-08 11:00 | disposition left against medical advice (07) ==
LOC: ED 10:09
DX: M25.571 Pain in right ankle and joints of right foot (principal); Z53.21 Procedure and treatment not carried out due to patient leaving prior to being seen by health care provider

== ENCOUNTER 2020-08-17 12:02 | Emergency (ER) | payer MEDICAID ==
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
[2020-08-17 16:15] VITALS: BP 129/79
== END 2020-08-17 16:10 | disposition home or self-care (01) ==
LOC: ED 12:02
DX: F25.0 Schizoaffective disorder, bipolar type (principal); F17.200 Nicotine dependence, unspecified, uncomplicated; J45.909 Unspecified asthma, uncomplicated; Z91.040 Latex allergy status; Z91.018 Allergy to other foods; Z98.890 Other specified postprocedural states; Z79.899 Other long term (current) drug therapy

== ENCOUNTER 2020-08-27 14:32 | Emergency (ER) | payer MEDICAID | END 2020-08-27 19:00 | disposition left against medical advice (07) | LOC: ED 14:32 | DX: R69 Illness, unspecified (principal); Z53.21 Procedure and treatment not carried out due to patient leaving prior to being seen by health care provider ==

== ENCOUNTER 2020-09-13 07:46 | Emergency (ER) | payer MEDICAID ==
[2020-09-13] MEDS ORDERED: ACETAMINOPHEN 325 MG TAB PO PRN (08:11)
[2020-09-13] MEDS ORDERED: ALUM-MAG HYDROXIDE-SIMETHICONE 200-200-20MG/5ML ORAL LIQD 30 ML PO PRN (08:11)
[2020-09-13] MEDS ORDERED: MAGNESIUM HYDROXIDE (MOM) ORAL LIQD UDC PO PRN (08:11)
[2020-09-13] MEDS ORDERED: ZIPRASIDONE MESYLATE 20 MG VIAL IM ONE ×2 (08:11)
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
[2020-09-13 09:08] LABS: Benzodiazepines Screen,Urine Negative; Methadone Screen,Urine Negative; Opiate Screen,Urine Negative
[2020-09-13 09:26] LABS: Bacteria,Urine 2+ /HPF (Negative); Bilirubin,Urine NEG (Negative); Blood,Urine NEG (Negative); Color,Urine Amber (Yellow); Mucus,Urine 3+ /HPF
[2020-09-13 09:44] LABS: Amphetamine Screen,Urine PRESUMPTIVE POSITIVE; Cannabinoid Screen,Urine PRESUMPTIVE POSITIVE; Cocaine Screen,Urine PRESUMPTIVE POSITIVE
--- NOTE | 2020-09-13 11:30 | Consultation ---
History of Present Illness - Reason for Consult Consult date: 09/13/20 Reason for consult: Homicidal Ideation - History of Present Psychiatric Illness Per Ed Note: HPI: This is a 25-year-old female with history of bipolar disorder schizophrenia polysubstance abuse who presents with abnormal behavior and homicidal ideation. She stated that she brought herself to the emergency department by foot. She states that "I am homicidal. I want to kill Yolanda Verma.". She admits to auditory hallucinations racing thoughts. She admitted to using crack cocaine in "ice". Patient was seen sleeping in the ED waiting room. Unable to assess patient at this due to recent IM medication PAST PSYCHIATRIC HISTORY:Unable to assess PAST MEDICAL HISTORY: Unable to assess Family Psychiatric History: Unable to assess SOCIAL HISTORY: Unable to assess REVIEW OF SYSTEMS: Unable to assess MENTAL STATUS EXAMINATION: Unable to assess Diagnoses:Unable to assess Current Visit: Yes Status: Acute RECOMMENDATIONS Medications and Allergies Allergies Allergy/AdvReac Type Severity Reaction Status Date / Time mushroom Allergy Swelling Verified 08/17/20 12:13 latex AdvReac DRY MOUTH Verified 08/17/20 12:13 / LOCAL IRRITATION Home Medications Medication Instructions Recorded Confirmed Last Taken Type Albuterol Sulfate 90 mcg INHALATION Q8HR PRN 06/13/20 06/13/20 Unknown History Depakote ER 1,500 mg PO QHS 06/13/20 06/13/20 06/12/20 17:00 History SEROquel 300 mg PO BID 06/13/20 06/13/20 06/12/20 07:00 History Zoloft 50 mg PO DAILY 06/13/20 06/13/20 Unknown History metFORMIN 1,500 mg PO QHS 06/13/20 06/13/20 06/12/20 07:00 History Divalproex ER [DepaKOTE ER] 1,500 mg PO QDAY #90 tablet 07/02/20 Unknown Rx Ibuprofen [Motrin] 800 mg PO Q8HR #30 tablet 08/06/20 Unknown Rx Divalproex ER [Depakote ER] 250 mg PO DAILY #20 08/07/20 Unknown Rx Quetiapine Fumarate [SEROquel] 300 mg PO BID #60 tablet 08/07/20 Unknown Rx Sertraline [Zoloft] 50 mg PO QDAY #30 tablet 08/07/20 Unknown Rx Active Meds: Active Medications Acetaminophen (Acetaminophen 325 Mg Tab) 650 mg PO Q4HR PRN PRN Reason: Pain MILD(1-3)/Fever >100.5/KNOWLES Al Hydrox/Mg Hydrox/Simethicone (Alum-Mag Hydroxide-Simethicone [id number]/5ml Oral Liqd 30 Ml) 30 ml PO Q4HR PRN PRN Reason: Indigestion Magnesium Hydroxide (Magnesium Hydroxide (Mom) Oral Liqd Udc) 30 ml PO Q12HR PRN PRN Reason: Constipation Mental Status Exam - Vital signs Last Vital Signs Temp 98.6 F 09/13/20 08:41 Pulse 80 09/13/20 08:41 Resp 20 09/13/20 08:41 BP 112/80 09/13/20 08:41 Pulse Ox 100 09/13/20 08:41 Results All other labs normal.
[2020-09-13 15:01] LABS: Basophils % (Auto) 0.5 % (0.0-1.8); Eosinophils # (Auto) 0.2 K/mm3 (0.0-0.4); Eosinophils % (Auto) 2.4 % (0.0-4.3); Hematocrit 43.5 % (30.3-42.9); Hemoglobin 14.9 gm/dl (10.1-14.3); Lymphocytes # (Auto) 2.6 K/mm3 (1.2-5.4); Lymphocytes % (Auto) 42.7 % (13.4-35.0); Mean Corpuscular HGB Conc 34 % (30-34); Mean Corpuscular Volume 93 fl (79-97); Monocytes # (Auto) 0.6 K/mm3 (0.0-0.8); Monocytes % (Auto) 9.7 % (0.0-7.3); Platelet Count 254 K/mm3 (140-440); Red Blood Count 4.66 M/mm3 (3.65-5.03)
[2020-09-13 15:03] LABS: Alanine Aminotransferase 9 units/L (7-56); Albumin 4.3 g/dL (3.9-5); Blood Urea Nitrogen 4 mg/dL (7-17); Calcium 9.6 mg/dL (8.4-10.2); Hemolysis Index 8
[2020-09-13 15:05] LABS: BUN/Creatinine Ratio 7
--- NOTE | 2020-09-14 10:07 | Progress Note ---
Subjective - Reason for Consult Consult date: 09/14/20 Reason for consult: psychosis - Chief Complaint Chief complaint: Per ED Note: 0700 Received report from Renetta RN, pt resting quietly on recliner, resp even and non labored, no acute distress noted, easily aroused, no complaints of voiced, able to make needs known, ambulates as needed to restroom without difficulty. The patient was seen today. She is sleeping. She is calm and cooperative. She is a/o x 3. She says she came to the hospital "to get back started on my meds." The patient states she takes "depakote, seroquel and zyprexa." The patient states "I feel better, can I please get out of here. I haven't been doing anything but sleeping since yesterday." She says "I have an appointment with my psychiatrist on the of this month." She denies SI/HI or hallucinations of any kind. The patient says "I was saying stuff but I was off my meds." REVIEW OF SYSTEMS Constitutional: Negative for weight loss ENT: Negative for stridor Respiratory: Negative for cough or hemoptysis All other systems reviewed and are negative MENTAL STATUS EXAMINATION General Appearance and Behavior: Age appropriate, good hygiene, wearing approp riate clothes, cooperative polite with questioning. Cooperation: cooperative, but evasive at times Psychomotor Behavior: Psychomotor agitation Mood: "better" Affect and affective range: congruent to stated mood Thought Process: compulsive Thought Content: None Speech: Normal volume, Regular rate and rhythm Suicidal Ideation: Denied Homicidal Ideation: Denied hallucination: Denies Delusions: None elicited Impulse Control: Unimpaired Insight and Judgment: limited Memory: Limited Attention: Unimpaired Orientation: Alert and oriented Diagnoses Bipolar Disorder Polysubstance abuse with Substance Induced Mood Disorder RECOMMENDATIONS D/c [address] 125mg po BID Zyprexa 2.5mg po daily Risks, benefits and alternatives of medications discussed with the patient, questions answered and consent obtained from patient. PSYCHOTHERAPY: Supportive psychotherapy provided MEDICAL: Per primary team DELIRIUM PRECAUTIONS: Please re-orient patient frequently, keep lights on during the day, and minimize benzodiazepines and opiates as these medications could worsen patient's confusion. 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 The patient understands that he is to seek immediate assistance if SI/HI or feelings of endangerment are to arise. He is to abstain from all illicit drug use. The fur blower operator to give him outpatient resources, transportation pass if needed, CBT and drug rehab resources Follow up in 7 to 14 days with psych upon discharge FOLLOW-UP: Will sign off Thank you for the consult. Please contact with any questions and/or concerns. Case staffed with Dr. Borges Mental Status Exam - Vital signs Last Vital Signs Temp 98.0 F 09/14/20 00:31 Pulse 81 09/14/20 00:31 Resp 18 09/14/20 00:31 BP 99/60 09/14/20 00:31 Pulse Ox 98 09/14/20 00:31
[2020-09-14 11:03] VITALS: BP 105/70
--- NOTE | 2020-09-14 13:00 | Event Note ---
Date: 09/14/20 25-year-old female with history of schizophrenia who initially presented with HI and hallucinations. The patient was seen by my colleague and medically cleared for psychiatric evaluation. The mental health clinical training specialist/psychiatry team saw the patient recommended DC of 1013 order initiation of risperidone/Prozac and follow-up with psychiatry in 7 to 14 days. I personally spoke with the patient denies SI/HI, auditory hallucinations, or visual hallucinations. She also denies any physical symptoms or complaints. Will be discharged with strict return precautions and outpatient resources.
== END 2020-09-14 13:27 | disposition home or self-care (01) ==
LOC: ED 07:46
DX: F23 Brief psychotic disorder (principal); Z20.822 Contact with and (suspected) exposure to COVID-19; R45.850 Homicidal ideations; F19.10 Other psychoactive substance abuse, uncomplicated; J45.909 Unspecified asthma, uncomplicated; F17.200 Nicotine dependence, unspecified, uncomplicated; Z98.890 Other specified postprocedural states; Z79.899 Other long term (current) drug therapy; Z91.040 Latex allergy status; Z91.018 Allergy to other foods; F31.9 Bipolar disorder, unspecified
CPT/HCPCS: 36415; 80053; 80164; 80178; 80307; 81001; 82962; 84703; 85025; 96372; 99284; J3486; U0003; 80320; G0480

== ENCOUNTER 2020-09-29 19:05 | Emergency (ER) | payer MEDICAID ==
[2020-09-29 19:59] VITALS: BP 110/60
== END 2020-09-30 00:11 ==
LOC: ED 19:05
DX: J40 Bronchitis, not specified as acute or chronic (principal); Z53.21 Procedure and treatment not carried out due to patient leaving prior to being seen by health care provider

== ENCOUNTER 2020-10-06 20:56 | Emergency (ER) | payer MEDICAID | END 2020-10-06 21:00 | disposition left against medical advice (07) | LOC: ED 20:56 | DX: Z00.00 Encounter for general adult medical examination without abnormal findings (principal); Z53.21 Procedure and treatment not carried out due to patient leaving prior to being seen by health care provider ==

== ENCOUNTER 2020-10-13 19:21 | Emergency (ER) | payer MEDICAID ==
[2020-10-13 19:37] VITALS: BP 112/85
--- NOTE | 2020-10-13 20:36 | Event Note ---
ED Screening Note Date of service: 10/13/20 Time: 20:26 ED Screening Note: Patient is a 25-year-old -Serbian female with a history of chronic paranoid schizophrenia, bipolar disorder, anxiety and depression who presents to the ED with complaint of diffuse body aches and pains, and hearing voices which has got worse in the last 1 week. Patient states that she does not take any medications although she admits that she is supposed to be on various medications. Patient denies chest pain, shortness of breath, fever, chills, dysuria, urinary frequency and urgency, cough, change in vision, loss of consciousness, suicidal ideation, homicidal ideation or abdominal pain. In the ED, patient is alert and oriented x3 and is not in distress but tachycardic and afebrile in triage. Patient has a flat affect, anxious, cannot see steady and has verbal hallucinations with tangential speech. This initial assessment/diagnostic orders/clinical plan/treatment(s) is/are subject to change based on patients health status, clinical progression and re- assessment by fellow clinical providers in the ED. Further treatment and workup at subsequent clinical providers discretion. Patient/guardian urged not to elope from the ED as their condition may be serious if not clinically assessed and managed. Initial orders include: CBC, CMP, UDS, UA, hCG serum, acetaminophen, salicylate, TSH
[2020-10-13 20:51] LABS: Amphetamine Screen,Urine Negative; Benzodiazepines Screen,Urine Negative; Methadone Screen,Urine Negative; Opiate Screen,Urine Negative
[2020-10-13 21:04] LABS: Bacteria,Urine 2+ /HPF (Negative); Bilirubin,Urine MOD (Negative); Blood,Urine NEG (Negative); Color,Urine Amber (Yellow); Mucus,Urine 3+ /HPF
[2020-10-13 21:11] LABS: Cannabinoid Screen,Urine Positive; Cocaine Screen,Urine Positive
[2020-10-13 21:28] LABS: Ictotest,Urine Positive (Negative)
[2020-10-13 22:19] LABS: Basophils % (Auto) 0.4 % (0.0-1.8); Eosinophils # (Auto) 0.1 K/mm3 (0.0-0.4); Eosinophils % (Auto) 0.8 % (0.0-4.3); Hematocrit 39.9 % (30.3-42.9); Hemoglobin 13.6 gm/dl (10.1-14.3); Lymphocytes # (Auto) 2.2 K/mm3 (1.2-5.4); Lymphocytes % (Auto) 26.7 % (13.4-35.0); Mean Corpuscular HGB Conc 34 % (30-34); Mean Corpuscular Volume 93 fl (79-97); Monocytes # (Auto) 0.9 K/mm3 (0.0-0.8); Monocytes % (Auto) 10.9 % (0.0-7.3); Platelet Count 289 K/mm3 (140-440); Red Cell Distribution Width 14.4 % (13.2-15.2)
[2020-10-13 22:33] LABS: Alanine Aminotransferase 11 units/L (7-56); Albumin 4.1 g/dL (3.9-5); Blood Urea Nitrogen 4 mg/dL (7-17); Calcium 9.3 mg/dL (8.4-10.2); Hemolysis Index 8
[2020-10-13 22:43] LABS: BUN/Creatinine Ratio 7
== END 2020-10-15 04:58 ==
LOC: ED 19:21
DX: Z13.30 Encounter for screening examination for mental health and behavioral disorders, unspecified (principal); Z53.21 Procedure and treatment not carried out due to patient leaving prior to being seen by health care provider
CPT/HCPCS: 36415; 80053; 80307; 80320; 81001; 84443; 84703; 85025; G0480

== ENCOUNTER 2020-10-22 23:33 | Emergency (ER) | payer MEDICAID | END 2020-10-22 23:38 | disposition left against medical advice (07) | LOC: ED 23:33 | DX: Z00.8 Encounter for other general examination (principal); Z53.21 Procedure and treatment not carried out due to patient leaving prior to being seen by health care provider ==

== ENCOUNTER 2020-12-21 18:57 | Emergency (ER) | payer MEDICAID ==
[2020-12-21 19:28] VITALS: BP 119/75
[2020-12-21] MEDS ORDERED: IBUPROFEN 600 MG TAB PO ONE (19:47)
[2020-12-21] MEDS ORDERED: DIVALPROEX DR 500 MG TAB PO ONE (19:47)
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
[2020-12-21] MEDS ORDERED: LORazepam 1 MG TAB PO ONE (20:23)
== END 2020-12-21 21:17 | disposition home or self-care (01) ==
LOC: ED 18:57
DX: R56.9 Unspecified convulsions (principal); T50.995A Adverse effect of other drugs, medicaments and biological substances, initial encounter; Z76.0 Encounter for issue of repeat prescription; F20.9 Schizophrenia, unspecified; F41.1 Generalized anxiety disorder; F32.9 Major depressive disorder, single episode, unspecified; F90.9 Attention-deficit hyperactivity disorder, unspecified type; J45.909 Unspecified asthma, uncomplicated; Z98.890 Other specified postprocedural states; Z91.018 Allergy to other foods; Z91.040 Latex allergy status; Y92.89 Other specified places as the place of occurrence of the external cause
CPT/HCPCS: 99282

== ENCOUNTER 2021-01-15 13:29 | Emergency (ER) | payer MEDICAID ==
[2021-01-15] MEDS ORDERED: ZIPRASIDONE MESYLATE 20 MG VIAL IM ONE (14:40)
[2021-01-15] MEDS ORDERED: LORazepam 2 MG/ML VIAL IM ONE (14:40)
[2021-01-15 16:58] LABS: Hematocrit 37.5 % (30.3-42.9); Hemoglobin 12.5 gm/dl (10.1-14.3); Mean Corpuscular HGB Conc 34 % (30-34); Mean Corpuscular Volume 93 fl (79-97); Platelet Count 239 K/mm3 (140-440); Red Blood Count 4.03 M/mm3 (3.65-5.03); Red Cell Distribution Width 14.8 % (13.2-15.2)
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
[2021-01-15 18:17] LABS: Blood Urea Nitrogen 4 mg/dL (7-17); Calcium 8.4 mg/dL (8.4-10.2); Hemolysis Index 11
[2021-01-15 18:21] LABS: BUN/Creatinine Ratio 6
[2021-01-15 18:55] LABS: Anisocytosis RARE; Total Cells Counted 100
[2021-01-15] MEDS ORDERED: POTASSIUM CHLORIDE ER 20 MEQ TAB PO ONE (19:44)
[2021-01-16 08:01] LABS: Amphetamine Screen,Urine Negative; Benzodiazepines Screen,Urine Negative; Methadone Screen,Urine Negative; Opiate Screen,Urine Negative
[2021-01-16 08:11] LABS: Bilirubin,Urine MOD (Negative); Blood,Urine NEG (Negative); Color,Urine Amber (Yellow); Mucus,Urine 3+ /HPF
[2021-01-16 08:18] LABS: Cannabinoid Screen,Urine Positive; Cocaine Screen,Urine Positive
[2021-01-16 08:49] LABS: Ictotest,Urine Negative (Negative)
[2021-01-16] MEDS ORDERED: POTASSIUM CHLORIDE ER 20 MEQ TAB PO ONE (09:25)
--- NOTE | 2021-01-16 10:21 | Emergency Department Report ---
Blank Doc - Documentation Documentation: Patient still demonstrates some degree of word salad. Labs have been reviewed. Patient does not have any dysuria or frequency. I will not treat her empirically for urinary infection. Culture has been added on. Depakote level has been added on. Should be maintained on medications. We are currently awaiting psychiatric evaluation. Disposition will based on psychiatric evaluation.
[2021-01-16] MEDS ORDERED: ZIPRASIDONE MESYLATE 20 MG VIAL IM ONE (11:12)
[2021-01-16] MEDS ORDERED: WATER FOR INJ Sterile (PF) 10 ML ONE (11:19)
--- NOTE | 2021-01-16 11:33 | Consultation ---
History of Present Illness - Reason for Consult Consult date: 01/16/21 Reason for consult: mental health evaluation - History of Present Psychiatric Illness Patient was seen this morning. Unable to assess patient at this time due to her selective mutism; the patient is not cooperative. PAST PSYCHIATRIC HISTORY:Unable to assess PAST MEDICAL HISTORY: Unable to assess Family Psychiatric History: Unable to assess SOCIAL HISTORY: Unable to assess REVIEW OF SYSTEMS: Unable to assess MENTAL STATUS EXAMINATION: Unable to assess Diagnoses:Unable to assess Current Visit: Yes Status: Acute RECOMMENDATIONS Diagnoses Bipolar Disorder Polysubstance abuse with Substance Induced Mood Disorder RECOMMENDATIONS Continue [address] 125mg po BID Zyprexa 5 mg po daily Risks, benefits and alternatives of medications discussed with the patient, questions answered and consent obtained from patient. PSYCHOTHERAPY: Supportive psychotherapy provided MEDICAL: Per primary team DELIRIUM PRECAUTIONS: Please re-orient patient frequently, keep lights on during the day, and minimize benzodiazepines and opiates as these medications could worsen patient's confusion. 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 He is to abstain from all illicit drug use. FOLLOW-UP: Will follow Thank you for the consult. Please contact with any questions and/or concerns. Case staffed with Dr. Borges Medications and Allergies Allergies Allergy/AdvReac Type Severity Reaction Status Date / Time mushroom Allergy Swelling Verified 12/21/20 19:28 latex AdvReac DRY MOUTH Verified 12/21/20 19:28 / LOCAL IRRITATION Home Medications Medication Instructions Recorded Confirmed Last Taken Type Albuterol Sulfate 90 mcg INHALATION Q8HR PRN 06/13/20 09/14/20 Unknown History Depakote ER 1,500 mg PO QHS 06/13/20 09/14/20 1 Week Ago History ~09/07/20 SEROquel 300 mg PO BID 06/13/20 09/14/20 1 Week Ago History ~09/07/20 metFORMIN 1,500 mg PO QHS 06/13/20 09/14/20 1 Week Ago History ~09/07/20 Divalproex ER [DepaKOTE ER] 1,500 mg PO QDAY #90 tablet 07/02/20 09/14/20 1 Week Ago Rx ~09/07/20 Divalproex ER [Depakote ER] 250 mg PO DAILY #20 08/07/20 09/14/20 1 Week Ago Rx ~09/07/20 Sertraline [Zoloft] 50 mg PO QDAY #30 tablet 08/07/20 09/14/20 1 Week Ago Rx ~09/07/20 OLANzapine [ZyPREXA] 2.5 mg PO QDAY #30 tablet 09/14/[address] [Depakote Dr] 125 mg PO BID #60 tablet 12/21/20 Unknown Rx Ibuprofen [Motrin 800 MG tab] 800 mg PO Q8HR #30 tablet 12/21/20 Unknown Rx Quetiapine Fumarate [SEROquel] 300 mg PO BID #60 tablet 12/21/20 Unknown Rx Zoloft 50 mg PO DAILY #30 12/21/20 Unknown Rx metFORMIN [Glucophage] 500 mg PO BID #60 tablet 12/21/20 Unknown Rx Mental Status Exam - Vital signs Last Vital Signs Temp 98.6 F 01/16/21 08:11 Pulse 80 01/16/21 08:11 Resp 18 01/16/21 08:11 BP 125/74 01/16/21 08:11 Pulse Ox 100 01/16/21 08:11 Results Result Diagrams: 01/15/21 16:39 01/15/21 16:39 Abnormal lab results 01/15/21 01/15/21 01/15/21 Range/Units 16:39 16:39 16:39 Monocytes % (Manual) 9.0 H (0.0-7.3) % Potassium 3.1 L (3.6-5.0) mmol/L BUN 4 L (7-17) mg/dL Glucose 114 H (65-100) mg/dL Ur Specific [place] (1.003-1.030) Urine WBC (Auto) (0.0-6.0) /HPF U Epithel Cells (Auto) (0-13.0) /HPF Salicylates < 0.3 L (2.8-20.0) mg/dL Acetaminophen (10.0-30.0) ug/mL 01/15/21 01/16/21 Range/Units 16:39 07:42 Monocytes % (Manual) (0.0-7.3) % Potassium (3.6-5.0) mmol/L BUN (7-17) mg/dL Glucose (65-100) mg/dL Ur Specific [place] 1.033 H (1.003-1.030) Urine WBC (Auto) 17.0 H (0.0-6.0) /HPF U Epithel Cells (Auto) 105.0 H (0-13.0) /HPF Salicylates (2.8-20.0) mg/dL Acetaminophen 5.0 L (10.0-30.0) ug/mL All other labs normal.
[2021-01-16] MEDS: DIVALPROEX ER 250 MG TAB PO SCH (11:47)
[2021-01-17] MEDS ORDERED: ZIPRASIDONE MESYLATE 20 MG VIAL IM ONE (05:00)
[2021-01-17] MEDS ORDERED: LORazepam 2 MG/ML VIAL IM ONE (05:15)
[2021-01-17] MEDS: DIVALPROEX ER 250 MG TAB PO SCH (09:55)
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
[2021-01-17] MEDS: DIVALPROEX DR 250 MG TAB PO SCH ×2 (12:09→22:00)
--- NOTE | 2021-01-17 20:36 | Event Note ---
Awaiting placement to psychiatric facility. Patient is medically clear for psychiatric care.
[2021-01-17] MEDS ORDERED: ZIPRASIDONE MESYLATE 20 MG VIAL IM PRN (23:01)
--- NOTE | 2021-01-18 08:49 | Progress Note ---
Subjective - Reason for Consult Consult date: 01/18/21 Reason for consult: psychosis - Chief Complaint Chief complaint: The patient was seen today. Her thoughts are disorganized. Her speech is nonsensical. She is irritable. She is continuously ranting words that don't make sense. She tells me "I'm a moo cow and a chicken too. You yellow headed woman get away from me. I'm gone moo your ass out of here, asswhole, bitch, cow," She then says "I say 20 of them cows and everybody is looking at them. I'm not going there unless it is a doctor but I am a doctor too." She is still going on as I'm leaving the room. REVIEW OF SYSTEMS: Unable to assess MENTAL STATUS EXAMINATION: Unable to assess Diagnoses:Unable to assess Current Visit: Yes Status: Acute RECOMMENDATIONS Diagnoses (1) Bipolar Disorder (2) Polysubstance abuse with Substance Induced Mood Disorder RECOMMENDATIONS Continue [address] 250 mg po BID Increase Zyprexa 15 mg po daily Start Vistaril 50mg po BID Risks, benefits and alternatives of medications discussed with the patient, questions answered and consent obtained from patient. PSYCHOTHERAPY: Supportive psychotherapy provided MEDICAL: Per primary team DELIRIUM PRECAUTIONS: Please re-orient patient frequently, keep lights on during the day, and minimize benzodiazepines and opiates as these medications could worsen patient's confusion. 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 He is to abstain from all illicit drug use. FOLLOW-UP: Will follow. Please contact with any questions and/or concerns. Case staffed with Dr. Borges Medications and Allergies Mental Status Exam - Vital signs Last Vital Signs Temp 98.4 F 01/17/21 19:35 Pulse 104 H 01/17/21 19:35 Resp 18 01/17/21 19:35 BP 117/66 01/17/21 19:35 Pulse Ox 98 01/17/21 19:35
--- NOTE | 2021-01-18 10:33 | Event Note ---
Date: 01/18/21 The patient was evaluated in the emergency department for symptoms described in the history of present illness. He/she was evaluated in the context of the global COVID-19 pandemic, which necessitated consideration that the patient might be at risk for infection with the virus that causes COVID-19. Institutional protocols and algorithms that pertain to the evaluation of patients at risk for COVID-19 are in a state of rapid change based on information released by regulatory bodies including the CDC and federal and state organizations. These policies and algorithms were followed during the patient's care in the emergency department. Please note that these policies, procedures and recommendations changed on a rapid basis. Laboratory studies, vital signs, nursing documentation, ER documentation, and psychiatric documentation are reviewed and appreciated. Nursing team reports no acute events this morning or concerns. Patient resting comfortably on side, and in no acute distress Urinalysis is reviewed and appreciated. This urine sample is grossly contaminated. Furthermore, cultures are negative. This does not require antibiotic therapy. The patient was deemed medically suitable for psychiatric disposition and placement during her initial ER evaluation. The patient continues to remain medically suitable for psychiatric placement and disposition. sHe is currently pending psychiatric placement. Vital Signs 01/15/21 01/16/21 01/16/21 13:50 08:11 11:44 Temperature 98.4 F 98.6 F Pulse Rate 114 H 80 Respiratory 16 18 Rate Blood Pressure 124/81 125/74 [Right] O2 Sat by Pulse 100 100 98 Oximetry 01/16/21 01/17/21 01/17/21 19:59 08:04 18:03 Temperature 98.5 F 97.8 F Pulse Rate 90 74 Respiratory 18 18 Rate Blood Pressure 119/80 144/90 [Right] O2 Sat by Pulse 97 100 100 Oximetry 01/17/21 19:35 Temperature 98.4 F Pulse Rate 104 H Respiratory 18 Rate Blood Pressure 117/66 [Right] O2 Sat by Pulse 98 Oximetry Lab Results 01/15/21 01/15/21 01/15/21 Range/Units 16:39 16:39 16:39 WBC 5.9 (4.5-11.0) K/mm3 RBC 4.03 (3.65-5.03) M/mm3 Hgb 12.5 (10.1-14.3) gm/dl Hct 37.5 (30.3-42.9) % MCV 93 (79-97) fl MCH 31 (28-32) pg MCHC 34 (30-34) % RDW 14.8 (13.2-15.2) % Plt Count 239 (140-440) K/mm3 [place] % (Auto) Manufacturers Service Representative Add Manual Diff Complete Total Counted 100 Seg Neuts % (Manual) 58.0 (40.0-70.0) % Lymphocytes % (Manual) 30.0 (13.4-35.0) % Monocytes % (Manual) 9.0 H (0.0-7.3) % Eosinophils % (Manual) 2.0 (0.0-4.3) % Basophils % (Manual) 1.0 (0.0-1.8) % Nucleated RBC % Not Reportable Seg Neutrophils # Man 3.4 (1.8-7.7) K/mm3 Band Neutrophils # 0.0 K/mm3 Lymphocytes # (Manual) 1.8 (1.2-5.4) K/mm3 Abs React Lymphs (Man) 0.0 K/mm3 Monocytes # (Manual) 0.5 (0.0-0.8) K/mm3 Eosinophils # (Manual) 0.1 (0.0-0.4) K/mm3 Basophils # (Manual) 0.1 (0.0-0.1) K/mm3 Metamyelocytes # 0.0 K/mm3 Myelocytes # 0.0 K/mm3 Promyelocytes # 0.0 K/mm3 Blast Cells # 0.0 K/mm3 WBC Morphology Not Reportable Hypersegmented Neuts Not Reportable Hyposegmented Neuts Not Reportable Hypogranular Neuts Not Reportable Smudge Cells Not Reportable Toxic Granulation Not Reportable Toxic Vacuolation Not Reportable Dohle Bodies Not Reportable Pelger-Huet Anomaly Not Reportable Shar Rods Not Reportable Platelet Estimate Not Reportable Clumped Platelets Not Reportable Plt Clumps, EDTA Not Reportable Large Platelets Not Reportable Giant Platelets Not Reportable Platelet Satelliting Not Reportable Plt Morphology Comment Not Reportable RBC Morphology Not Reportable Dimorphic RBCs Not Reportable Polychromasia Not Reportable Hypochromasia Not Reportable Poikilocytosis Not Reportable Anisocytosis Rare Microcytosis Rare Macrocytosis Not Reportable Spherocytes Not Reportable Pappenheimer Bodies Not Reportable Sickle Cells Not Reportable Target Cells Not Reportable Tear Drop Cells Not Reportable Ovalocytes Not Reportable Helmet Cells Not Reportable [place] Bodies Not Reportable [place] Rings Not Reportable [place] Cells Not Reportable Bite Cells Not Reportable Crenated Cell Not Reportable Elliptocytes Not Reportable Acanthocytes (Spur) Not Reportable Rouleaux Not Reportable Hemoglobin C Crystals Not Reportable Schistocytes Not Reportable Malaria parasites Not Reportable Marko Bodies Not Reportable Hem Pathologist Commnt No Sodium 141 (137-145) mmol/L Potassium 3.1 L (3.6-5.0) mmol/L Chloride 102.0 (98-107) mmol/L Carbon Dioxide 24 (22-30) mmol/L Anion Gap 18 mmol/L BUN 4 L (7-17) mg/dL Creatinine 0.7 (0.6-1.2) mg/dL Estimated GFR > 60 ml/min BUN/Creatinine Ratio 6 % Glucose 114 H (65-100) mg/dL Calcium 8.4 (8.4-10.2) mg/dL HCG, Qual (Negative) Urine Color (Yellow) Urine Turbidity (Clear) Urine pH (5.0-7.0) Ur Specific [place] (1.003-1.030) Urine Protein (Negative) mg/dL Urine Glucose (UA) (Negative) mg/dL Urine Ketones (Negative) mg/dL Urine Blood (Negative) Urine Nitrite (Negative) Urine Bilirubin (Negative) Urine Ictotest (Negative) Urine Urobilinogen (<2.0) mg/dL Ur Leukocyte Esterase (Negative) Urine WBC (Auto) (0.0-6.0) /HPF Urine RBC (Auto) (0.0-6.0) /HPF U Epithel Cells (Auto) (0-13.0) /HPF Urine Mucus /HPF Salicylates < 0.3 L (2.8-20.0) mg/dL Urine Opiates Screen Urine Methadone Screen Acetaminophen (10.0-30.0) ug/mL Ur Barbiturates Screen Valproic Acid (50-100) ug/mL Ur Phencyclidine Scrn Ur Amphetamines Screen U Benzodiazepines Scrn Urine Cocaine Screen U Marijuana (THC) Screen Drugs of Abuse Note Plasma/Serum Alcohol (0-0.07) % Coronavirus (PCR) (Negative) 01/15/21 01/15/21 01/15/21 Range/Units 16:39 16:39 16:39 WBC (4.5-11.0) K/mm3 RBC (3.65-5.03) M/mm3 Hgb (10.1-14.3) gm/dl Hct (30.3-42.9) % MCV (79-97) fl MCH (28-32) pg MCHC (30-34) % RDW (13.2-15.2) % Plt Count (140-440) K/mm3 [place] % (Auto) Add Manual Diff Total Counted Seg Neuts % (Manual) (40.0-70.0) % Lymphocytes % (Manual) (13.4-35.0) % Monocytes % (Manual) (0.0-7.3) % Eosinophils % (Manual) (0.0-4.3) % Basophils % (Manual) (0.0-1.8) % Nucleated RBC % Seg Neutrophils # Man (1.8-7.7) K/mm3 Band Neutrophils # K/mm3 Lymphocytes # (Manual) (1.2-5.4) K/mm3 Abs React Lymphs (Man) K/mm3 Monocytes # (Manual) (0.0-0.8) K/mm3 Eosinophils # (Manual) (0.0-0.4) K/mm3 Basophils # (Manual) (0.0-0.1) K/mm3 Metamyelocytes # K/mm3 Myelocytes # K/mm3 Promyelocytes # K/mm3 Blast Cells # K/mm3 WBC Morphology Hypersegmented Neuts Hyposegmented Neuts Hypogranular Neuts Smudge Cells Toxic Granulation Toxic Vacuolation Dohle Bodies Pelger-Huet Anomaly Shar Rods Platelet Estimate Clumped Platelets Plt Clumps, EDTA Large Platelets Giant Platelets Platelet Satelliting Plt Morphology Comment RBC Morphology Dimorphic RBCs Polychromasia Hypochromasia Poikilocytosis Anisocytosis Microcytosis Macrocytosis Spherocytes Pappenheimer Bodies Sickle Cells Target Cells Tear Drop Cells Ovalocytes Helmet Cells [place] Bodies [place] Rings [place] Cells Bite Cells Crenated Cell Elliptocytes Acanthocytes (Spur) Rouleaux Hemoglobin C Crystals Schistocytes Malaria parasites Marko Bodies Hem Pathologist Commnt Sodium (137-145) mmol/L Potassium (3.6-5.0) mmol/L Chloride (98-107) mmol/L Carbon Dioxide (22-30) mmol/L Anion Gap mmol/L BUN (7-17) mg/dL Creatinine (0.6-1.2) mg/dL Estimated GFR ml/min BUN/Creatinine Ratio % Glucose (65-100) mg/dL Calcium (8.4-10.2) mg/dL HCG, Qual Negative (Negative) Urine Color (Yellow) Urine Turbidity (Clear) Urine pH (5.0-7.0) Ur Specific [place] (1.003-1.030) Urine Protein (Negative) mg/dL Urine Glucose (UA) (Negative) mg/dL Urine Ketones (Negative) mg/dL Urine Blood (Negative) Urine Nitrite (Negative) Urine Bilirubin (Negative) Urine Ictotest (Negative) Urine Urobilinogen (<2.0) mg/dL Ur Leukocyte Esterase (Negative) Urine WBC (Auto) (0.0-6.0) /HPF Urine RBC (Auto) (0.0-6.0) /HPF U Epithel Cells (Auto) (0-13.0) /HPF Urine Mucus /HPF Salicylates (2.8-20.0) mg/dL Urine Opiates Screen Urine Methadone Screen Acetaminophen 5.0 L (10.0-30.0) ug/mL Ur Barbiturates Screen Valproic Acid (50-100) ug/mL Ur Phencyclidine Scrn Ur Amphetamines Screen U Benzodiazepines Scrn Urine Cocaine Screen U Marijuana (THC) Screen Drugs of Abuse Note Plasma/Serum Alcohol < 0.01 (0-0.07) % Coronavirus (PCR) (Negative) 01/16/21 01/16/21 01/16/21 Range/Units 07:42 07:42 10:54 WBC (4.5-11.0) K/mm3 RBC (3.65-5.03) M/mm3 Hgb (10.1-14.3) gm/dl Hct (30.3-42.9) % MCV (79-97) fl MCH (28-32) pg MCHC (30-34) % RDW (13.2-15.2) % Plt Count (140-440) K/mm3 [place] % (Auto) Add Manual Diff Total Counted Seg Neuts % (Manual) (40.0-70.0) % Lymphocytes % (Manual) (13.4-35.0) % Monocytes % (Manual) (0.0-7.3) % Eosinophils % (Manual) (0.0-4.3) % Basophils % (Manual) (0.0-1.8) % Nucleated RBC % Seg Neutrophils # Man (1.8-7.7) K/mm3 Band Neutrophils # K/mm3 Lymphocytes # (Manual) (1.2-5.4) K/mm3 Abs React Lymphs (Man) K/mm3 Monocytes # (Manual) (0.0-0.8) K/mm3 Eosinophils # (Manual) (0.0-0.4) K/mm3 Basophils # (Manual) (0.0-0.1) K/mm3 Metamyelocytes # K/mm3 Myelocytes # K/mm3 Promyelocytes # K/mm3 Blast Cells # K/mm3 WBC Morphology Hypersegmented Neuts Hyposegmented Neuts Hypogranular Neuts Smudge Cells Toxic Granulation Toxic Vacuolation Dohle Bodies Pelger-Huet Anomaly Shar Rods Platelet Estimate Clumped Platelets Plt Clumps, EDTA Large Platelets Giant Platelets Platelet Satelliting Plt Morphology Comment RBC Morphology Dimorphic RBCs Polychromasia Hypochromasia Poikilocytosis Anisocytosis Microcytosis Macrocytosis Spherocytes Pappenheimer Bodies Sickle Cells Target Cells Tear Drop Cells Ovalocytes Helmet Cells [place]an[place] Bodies [place] Rings [place] Cells Bite Cells Crenated Cell Elliptocytes Acanthocytes (Spur) Rouleaux Hemoglobin C Crystals Schistocytes Malaria parasites Marko Bodies Hem Pathologist Commnt Sodium (137-145) mmol/L Potassium (3.6-5.0) mmol/L Chloride (98-107) mmol/L Carbon Dioxide (22-30) mmol/L Anion Gap mmol/L BUN (7-17) mg/dL Creatinine (0.6-1.2) mg/dL Estimated GFR ml/min BUN/Creatinine Ratio % Glucose (65-100) mg/dL Calcium (8.4-10.2) mg/dL HCG, Qual (Negative) Urine Color [place] (Yellow) Urine Turbidity Cloudy (Clear) Urine pH 6.0 (5.0-7.0) Ur Specific [place] 1.033 H (1.003-1.030) Urine Protein 100 mg/dl (Negative) mg/dL Urine Glucose (UA) Neg (Negative) mg/dL Urine Ketones Tr (Negative) mg/dL Urine Blood Neg (Negative) Urine Nitrite Neg (Negative) Urine Bilirubin Mod (Negative) Urine Ictotest Negative (Negative) Urine Urobilinogen 4.0 (<2.0) mg/dL Ur Leukocyte Esterase Neg (Negative) Urine WBC (Auto) 17.0 H (0.0-6.0) /HPF Urine RBC (Auto) 57.0 (0.0-6.0) /HPF U Epithel Cells (Auto) 105.0 H (0-13.0) /HPF Urine Mucus 3+ /HPF Salicylates (2.8-20.0) mg/dL Urine Opiates Screen Negative Urine Methadone Screen Negative Acetaminophen (10.0-30.0) ug/mL Ur Barbiturates Screen Negative Valproic Acid < 2.8 L (50-100) ug/mL Ur Phencyclidine Scrn Negative Ur Amphetamines Screen Negative U Benzodiazepines Scrn Negative Urine Cocaine Screen Positive U Marijuana (THC) Screen Positive Drugs of Abuse Note Disclamer Plasma/Serum Alcohol (0-0.07) % Coronavirus (PCR) (Negative) 01/16/21 Range/Units Unknown WBC (4.5-11.0) K/mm3 RBC (3.65-5.03) M/mm3 Hgb (10.1-14.3) gm/dl Hct (30.3-42.9) % MCV (79-97) fl MCH (28-32) pg MCHC (30-34) % RDW (13.2-15.2) % Plt Count (140-440) K/mm3 [place] % (Auto) Add Manual Diff Total Counted Seg Neuts % (Manual) (40.0-70.0) % Lymphocytes % (Manual) (13.4-35.0) % Monocytes % (Manual) (0.0-7.3) % Eosinophils % (Manual) (0.0-4.3) % Basophils % (Manual) (0.0-1.8) % Nucleated RBC % Seg Neutrophils # Man (1.8-7.7) K/mm3 Band Neutrophils # K/mm3 Lymphocytes # (Manual) (1.2-5.4) K/mm3 Abs React Lymphs (Man) K/mm3 Monocytes # (Manual) (0.0-0.8) K/mm3 Eosinophils # (Manual) (0.0-0.4) K/mm3 Basophils # (Manual) (0.0-0.1) K/mm3 Metamyelocytes # K/mm3 Myelocytes # K/mm3 Promyelocytes # K/mm3 Blast Cells # K/mm3 WBC Morphology Hypersegmented Neuts Hyposegmented Neuts Hypogranular Neuts Smudge Cells Toxic Granulation Toxic Vacuolation Dohle Bodies Pelger-Huet Anomaly Shar Rods Platelet Estimate Clumped Platelets Plt Clumps, EDTA Large Platelets Giant Platelets Platelet Satelliting Plt Morphology Comment RBC Morphology Dimorphic RBCs Polychromasia Hypochromasia Poikilocytosis Anisocytosis Microcytosis Macrocytosis Spherocytes Pappenheimer Bodies Sickle Cells Target Cells Tear Drop Cells Ovalocytes Helmet Cells [place] Bodies [place] Rings [place] Cells Bite Cells Crenated Cell Elliptocytes Acanthocytes (Spur) Rouleaux Hemoglobin C Crystals Schistocytes Malaria parasites Marko Bodies Hem Pathologist Commnt Sodium (137-145) mmol/L Potassium (3.6-5.0) mmol/L Chloride (98-107) mmol/L Carbon Dioxide (22-30) mmol/L Anion Gap mmol/L BUN (7-17) mg/dL Creatinine (0.6-1.2) mg/dL Estimated GFR ml/min BUN/Creatinine Ratio % Glucose (65-100) mg/dL Calcium (8.4-10.2) mg/dL HCG, Qual (Negative) Urine Color (Yellow) Urine Turbidity (Clear) Urine pH (5.0-7.0) Ur Specific [place] (1.003-1.030) Urine Protein (Negative) mg/dL Urine Glucose (UA) (Negative) mg/dL Urine Ketones (Negative) mg/dL Urine Blood (Negative) Urine Nitrite (Negative) Urine Bilirubin (Negative) Urine Ictotest (Negative) Urine Urobilinogen (<2.0) mg/dL Ur Leukocyte Esterase (Negative) Urine WBC (Auto) (0.0-6.0) /HPF Urine RBC (Auto) (0.0-6.0) /HPF U Epithel Cells (Auto) (0-13.0) /HPF Urine Mucus /HPF Salicylates (2.8-20.0) mg/dL Urine Opiates Screen Urine Methadone Screen Acetaminophen (10.0-30.0) ug/mL Ur Barbiturates Screen Valproic Acid (50-100) ug/mL Ur Phencyclidine Scrn Ur Amphetamines Screen U Benzodiazepines Scrn Urine Cocaine Screen U Marijuana (THC) Screen Drugs of Abuse Note Plasma/Serum Alcohol (0-0.07) % Coronavirus (PCR) Negative (Negative)
[2021-01-18] MEDS ORDERED: POTASSIUM CHLORIDE ER 20 MEQ TAB PO SCH (11:00)
[2021-01-18] MEDS: DIVALPROEX DR 250 MG TAB PO SCH ×2 (11:20→22:13)
--- NOTE | 2021-01-19 10:47 | Progress Note ---
Subjective - Reason for Consult Consult date: 01/19/21 Reason for consult: psychosis - Chief Complaint Chief complaint: The patient was seen today. Her thoughts are disorganized. Her speech is nonsensical. She is irritable. She says she doesn't want to be bothered. The patient starts calling a bunch of words that don't connect. The nurse caring for the patient says the patient has been very psychotic and nonsensical. REVIEW OF SYSTEMS: Unable to assess MENTAL STATUS EXAMINATION: Unable to assess Diagnoses: Unable to assess Current Visit: Yes Status: Acute RECOMMENDATIONS Diagnoses (1) Bipolar Disorder (2) Polysubstance abuse with Substance Induced Mood Disorder RECOMMENDATIONS Continue [address] 250 mg po TID Increase Zyprexa 20mg po daily Start Vistaril 50mg po BID Risks, benefits and alternatives of medications discussed with the patient, questions answered and consent obtained from patient. PSYCHOTHERAPY: Supportive psychotherapy provided MEDICAL: Per primary team DELIRIUM PRECAUTIONS: Please re-orient patient frequently, keep lights on during the day, and minimize benzodiazepines and opiates as these medications could worsen patient's confusion. CHAPERONE: Per medical team DISPOSITION: Recommend acute inpatient psychiatric hospitalization at this time. He is to abstain from all illicit drug use. FOLLOW-UP: Will follow. Please contact with any questions and/or concerns. Case staffed with Dr. Borges Mental Status Exam - Vital signs Last Vital Signs Temp 97.4 F L 01/19/21 02:28 Pulse 74 01/19/21 02:28 Resp 18 01/19/21 02:28 BP 95/53 01/19/21 02:28 Pulse Ox 100 01/19/21 02:28
[2021-01-19] MEDS: DIVALPROEX DR 250 MG TAB PO SCH ×2 (12:02→22:04)
--- NOTE | 2021-01-19 14:00 | Event Note ---
No acute issues. Patient is medically clear for psychiatric care.
[2021-01-19] MEDS ORDERED: ACETAMINOPHEN 500 MG TAB PO ONE ×2 (16:58→22:51)
[2021-01-19] MEDS ORDERED: DOCUSATE SODIUM 100 MG CAP PO PRN (23:52)
[2021-01-20 03:01] VITALS: BP 110/66
--- NOTE | 2021-01-20 09:35 | Progress Note ---
Subjective - Reason for Consult Consult date: 01/20/21 Reason for consult: psychosis - Chief Complaint Chief complaint: The patient was seen today. She is much calmer and better than previous days. Her thoughts are organized. She is a/o x 3. The patient says she's "doing a lot better." She says "I got like this cause I was off my medicine." The patient says she's "been getting good rest and taking my meds." She denies SI/HI or hallucinations of any kind. She says "I'm not seeing or hearing anything anymore." She says "can I please go home? I'm ready now." REVIEW OF SYSTEMS Constitutional: Negative for weight loss ENT: Negative for stridor Respiratory: Negative for cough or hemoptysis All other systems reviewed and are negative MENTAL STATUS EXAMINATION General Appearance and Behavior: Age appropriate, good hygiene, wearing appropriate clothes. calm and cooperative Cooperation: cooperative Psychomotor Behavior: Psychomotor normal Mood: a lot better Affect and affective range: congruent with stated mood Thought Process: goal directed Thought Content: Denies Speech: Normal volume, Regular rate and rhythm, Suicidal Ideation: Denies Homicidal Ideation: Denies Hallucinations: Denies Delusions: None elicited Impulse Control: Questionable Insight and Judgment: Limited Memory: limited Attention: Attentive Orientation: alert and oriented Diagnoses (1) Bipolar Disorder (2) Polysubstance abuse with Substance Induced Mood Disorder RECOMMENDATIONS d/c [address] 250 mg po TID Zyprexa 20mg po daily Vistaril 50mg po BID Risks, benefits and alternatives of medications discussed with the patient, questions answered and consent obtained from patient. PSYCHOTHERAPY: Supportive psychotherapy provided MEDICAL: Per primary team DELIRIUM PRECAUTIONS: Please re-orient patient frequently, keep lights on during the day, and minimize benzodiazepines and opiates as these medications could worsen patient's confusion. NOUGAT CANDY MAKER HELPER: Per medical team DISPOSITION: Do not recommend acute inpatient psychiatric hospitalization at this time. The patient understands that if SI/HI or any fear of endangerment arise she is to seek immediate assistance She is to abstain from all illicit drug use. The dough molder hand is to give the patient all necessary resources including drug rehab Will sign off. Thanks Please contact with any questions and/or concerns. Case staffed with Dr. Borges Mental Status Exam - Vital signs Last Vital Signs Temp 97.2 F L 01/20/21 03:00 Pulse 90 01/20/21 03:00 Resp 18 01/20/21 03:00 BP 110/66 01/20/21 03:00 Pulse Ox 100 01/20/21 03:00
--- NOTE | 2021-01-20 10:18 | Event Note ---
Patient cleared for discharge by psychiatric team. I have provided discharge order documentation.
== END 2021-01-20 10:30 | disposition home or self-care (01) ==
LOC: ED 13:29 → EEVIPCON 13:29 → ED 01-20 10:30
DX: F20.9 Schizophrenia, unspecified (principal); F90.9 Attention-deficit hyperactivity disorder, unspecified type; J45.909 Unspecified asthma, uncomplicated; Z20.822 Contact with and (suspected) exposure to COVID-19; Z79.899 Other long term (current) drug therapy
CPT/HCPCS: 36415; 80048; 80164; 80307; 81001; 84703; 85007; 85025; 87086; 96372; 99284; J2060; J3486; Q0177; U0003; 80320; G0480

== ENCOUNTER 2021-01-21 15:22 | Emergency (ER) | payer MEDICAID ==
[2021-01-21 15:34] VITALS: BP 119/89
--- NOTE | 2021-01-21 15:47 | Event Note ---
ED Screening Note ED Screening Note: Here recently and d/c hyperverbal responding to internal commands illogical; caydenen. thoughts no hi no si "she had a glock, 9 mm in her back" This initial assessment/diagnostic orders/clinical plan/treatment(s) is/are subject to change based on patients health status, clinical progression and re-assessment by fellow clinical providers in the ED. Further treatment and workup at subsequent clinical providers discretion. Patient/guardian urged not to elope from the ED as their condition may be serious if not clinically assessed and managed. Initial orders include: psych eval
[2021-01-21 16:11] LABS: Basophils # (Auto) 0.1 K/mm3 (0.0-0.1); Basophils % (Auto) 0.8 % (0.0-1.8); Eosinophils # (Auto) 0.1 K/mm3 (0.0-0.4); Eosinophils % (Auto) 0.5 % (0.0-4.3); Hematocrit 41.5 % (30.3-42.9); Hemoglobin 13.9 gm/dl (10.1-14.3); Lymphocytes % (Auto) 20.2 % (13.4-35.0); Mean Corpuscular HGB Conc 34 % (30-34); Mean Corpuscular Volume 93 fl (79-97); Monocytes # (Auto) 1.6 K/mm3 (0.0-0.8); Platelet Count 339 K/mm3 (140-440); Red Blood Count 4.49 M/mm3 (3.65-5.03); Red Cell Distribution Width 14.9 % (13.2-15.2)
[2021-01-21 16:30] LABS: Alanine Aminotransferase 14 units/L (7-56); Albumin 4.4 g/dL (3.9-5); BUN/Creatinine Ratio 20; Blood Urea Nitrogen 16 mg/dL (7-17); Calcium 9.8 mg/dL (8.4-10.2); Hemolysis Index 15
== END 2021-01-21 19:00 | disposition left against medical advice (07) ==
LOC: ED 15:22
DX: Z36.2 Encounter for other antenatal screening follow-up (principal); Z53.21 Procedure and treatment not carried out due to patient leaving prior to being seen by health care provider
CPT/HCPCS: 36415; 80053; 80320; 84443; 84703; 85025; G0480

== ENCOUNTER 2021-03-26 13:42 | Emergency (ER) | payer MEDICAID | END 2021-03-26 16:07 | disposition left against medical advice (07) | LOC: ED 13:42 | DX: F99 Mental disorder, not otherwise specified (principal); Z53.21 Procedure and treatment not carried out due to patient leaving prior to being seen by health care provider ==

== ENCOUNTER 2021-03-27 05:39 | Emergency (ER) | payer MEDICAID ==
[2021-03-27 05:50] VITALS: BP 123/80
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
== END 2021-03-27 06:40 | disposition home or self-care (01) ==
LOC: ED 05:39
DX: S96.911A Strain of unspecified muscle and tendon at ankle and foot level, right foot, initial encounter (principal); Z91.040 Latex allergy status; Z91.018 Allergy to other foods; F31.9 Bipolar disorder, unspecified; F20.9 Schizophrenia, unspecified; J45.909 Unspecified asthma, uncomplicated; X58.XXXA Exposure to other specified factors, initial encounter; Y93.89 Activity, other specified; Y92.89 Other specified places as the place of occurrence of the external cause; Y99.8 Other external cause status
CPT/HCPCS: 99282

== ENCOUNTER 2021-04-30 15:15 | Emergency (ER) | payer MEDICAID ==
[2021-04-30 19:14] LABS: Basophils # (Auto) 0.1 K/mm3 (0.0-0.1); Basophils % (Auto) 0.7 % (0.0-1.8); Eosinophils # (Auto) 0.1 K/mm3 (0.0-0.4); Eosinophils % (Auto) 2.1 % (0.0-4.3); Hematocrit 37.8 % (30.3-42.9); Hemoglobin 12.4 gm/dl (10.1-14.3); Lymphocytes # (Auto) 3.3 K/mm3 (1.2-5.4); Lymphocytes % (Auto) 48.1 % (13.4-35.0); Mean Corpuscular HGB Conc 33 % (30-34); Mean Corpuscular Volume 91 fl (79-97); Monocytes # (Auto) 0.8 K/mm3 (0.0-0.8); Monocytes % (Auto) 12.3 % (0.0-7.3); Platelet Count 368 K/mm3 (140-440); Red Blood Count 4.15 M/mm3 (3.65-5.03); Red Cell Distribution Width 15.2 % (13.2-15.2)
[2021-04-30 19:31] LABS: Blood Urea Nitrogen 8 mg/dL (7-17); Calcium 8.6 mg/dL (8.4-10.2); Hemolysis Index 10
[2021-04-30 19:45] LABS: BUN/Creatinine Ratio 13
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
[2021-05-01 09:50] VITALS: BP 108/71
--- NOTE | 2021-05-01 12:18 | Progress Note ---
Subjective - Reason for Consult Consult date: 05/01/21 Reason for consult: SI - Chief Complaint Chief complaint: The patient was seen today. She is known from previous, multiple visits to the ER. She is non compliant with her medical regimen, and has a history of polysubstance abuse. Her symptoms are vague, and she rambles at times. The patient says she came to the ER because "I am sick. 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 She says she has a history of "bipolar, szhizophrenia and ADHD." She denies SI/HI when asked, but replies "I just feel like somebody is after me." The patient says "I had a brain injury in the past." REVIEW OF SYSTEMS Constitutional: Negative for weight loss ENT: Negative for stridor Respiratory: Negative for cough or hemoptysis All other systems reviewed and are negative MENTAL STATUS EXAMINATION General Appearance and Behavior: Age appropriate, good hygiene, wearing appropriate clothes. calm and cooperative Cooperation: cooperative Psychomotor Behavior: Psychomotor normal Mood: a lot better Affect and affective range: congruent with stated mood Thought Process: goal directed Thought Content: Denies Speech: Normal volume, Regular rate and rhythm, Suicidal Ideation: Denies Homicidal Ideation: Denies Hallucinations: Denies Delusions: yes Impulse Control: Questionable Insight and Judgment: Limited Memory: limited Attention: Attentive Orientation: alert and oriented Diagnoses (1) Bipolar Disorder (2) Polysubstance abuse with Substance Induced Mood Disorder RECOMMENDATIONS d/c 1013 Continue previously prescribed meds Risks, benefits and alternatives of medications discussed with the patient, questions answered and consent obtained from patient. PSYCHOTHERAPY: Supportive psychotherapy provided MEDICAL: Per primary team DELIRIUM PRECAUTIONS: Please re-orient patient frequently, keep lights on during the day, and minimize benzodiazepines and opiates as these medications could worsen patient's confusion. STRATEGY ANALYST: Per medical team DISPOSITION: Do not recommend acute inpatient psychiatric hospitalization at this time. The patient understands that if SI/HI or any fear of endangerment arise she is to seek immediate assistance She is to abstain from all illicit drug use. The well testing operator is to give the patient all necessary resources including drug rehab Will sign off. Thanks Please contact with any questions and/or concerns. Case staffed with Dr. Borges Mental Status Exam - Vital signs Last Vital Signs Temp 98.9 F 05/01/21 09:49 Pulse 99 H 05/01/21 09:49 Resp 18 05/01/21 09:49 BP 108/71 05/01/21 09:49 Pulse Ox 99 05/01/21 09:49
--- NOTE | 2021-05-01 13:42 | Event Note ---
Date: 05/01/21 Patient has been evaluated by our psychiatric team and recommended patient to be discharged home and follow-up as an outpatient. Patient denied any suicidal homicidal ideation. No visual or auditory hallucination. Patient is medically and psychiatrically stable for discharge.
== END 2021-05-01 14:10 | disposition home or self-care (01) ==
LOC: ED 15:15
DX: F29 Unspecified psychosis not due to a substance or known physiological condition (principal); F20.9 Schizophrenia, unspecified; F19.10 Other psychoactive substance abuse, uncomplicated; J45.909 Unspecified asthma, uncomplicated
CPT/HCPCS: 36415; 80048; 80320; 84703; 85025; 99283; G0480

== ENCOUNTER 2021-07-25 21:07 | Emergency (ER) | payer MEDICAID ==
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
[2021-07-25 23:08] LABS: Basophils # (Auto) 0.1 K/mm3 (0.0-0.1); Basophils % (Auto) 0.5 % (0.0-1.8); Eosinophils # (Auto) 0.1 K/mm3 (0.0-0.4); Eosinophils % (Auto) 1.1 % (0.0-4.3); Hematocrit 39.2 % (30.3-42.9); Hemoglobin 12.9 gm/dl (10.1-14.3); Lymphocytes # (Auto) 4.1 K/mm3 (1.2-5.4); Lymphocytes % (Auto) 40.5 % (13.4-35.0); Mean Corpuscular HGB Conc 33 % (30-34); Mean Corpuscular Volume 92 fl (79-97); Monocytes # (Auto) 0.9 K/mm3 (0.0-0.8); Monocytes % (Auto) 8.7 % (0.0-7.3); Platelet Count 383 K/mm3 (140-440); Red Blood Count 4.27 M/mm3 (3.65-5.03); Red Cell Distribution Width 14.1 % (13.2-15.2)
[2021-07-25 23:17] LABS: Blood Urea Nitrogen 9 mg/dL (7-17); Calcium 9.1 mg/dL (8.4-10.2); Hemolysis Index 6
[2021-07-25 23:18] LABS: BUN/Creatinine Ratio 13
[2021-07-25 23:22] LABS: Amphetamine Screen,Urine PRESUMPTIVE POSITIVE; Benzodiazepines Screen,Urine PRESUMPTIVE NEGATIVE; Cannabinoid Screen,Urine PRESUMPTIVE NEGATIVE; Cocaine Screen,Urine PRESUMPTIVE POSITIVE; Methadone Screen,Urine PRESUMPTIVE NEGATIVE; Opiate Screen,Urine PRESUMPTIVE NEGATIVE
[2021-07-25 23:30] LABS: Bilirubin,Urine NEG (Negative); Blood,Urine NEG (Negative); Color,Urine Yellow (Yellow); Mucus,Urine 1+ /HPF
[2021-07-26] MEDS ORDERED: ZIPRASIDONE MESYLATE 20 MG VIAL IM ONE (03:05)
--- NOTE | 2021-07-26 12:11 | Consultation ---
History of Present Illness - Reason for Consult Consult date: 07/26/21 Reason for consult: Mental health evaluation - History of Present Psychiatric Illness ED Note: Patient is 26 years old female with history of schizophrenia. Patient brought to the emergency room via EMS from a local store after someone called police due to patient being disruptive at the store. EMS reported that upon arrival patient being uncooperative yelling out. In the emergency room patient is very loud and belligerent. She is refusing to answer questions. The patient is a 26 year old female with history of bipolar , schizophrenia and methamphetamine use disorder. The patient was seen this morning. She is calm, alert and oriented x3. She states that she came to the the ED "to have my wounds cleaned." The patient denies any current suicidal/homicidal ideation and denies hallucinations. PAST PSYCHIATRIC HISTORY Diagnoses: Bipolar, schizophrenia Suicide attempts or Self-harm behavior: Yes Prior psychiatric hospitalizations: Yes Substance Abuse history: meth Previous psychiatric medications tried: Seroquel, Depakote Outpatient treatment: Unknown PAST MEDICAL HISTORY: None reported Family Psychiatric History: None reported or documented SOCIAL HISTORY Marital Status: Single Living Arrangements: Homeless Employment Status:Unemployed Access to guns/weapons: Denies Education: College History of Abuse: Denies Legal History: unknown REVIEW OF SYSTEMS Constitutional: Negative for weight loss ENT: Negative for stridor Respiratory: Negative for cough or hemoptysis All other systems reviewed and are negative MENTAL STATUS EXAMINATION General Appearance and Behavior: Age appropriate, good hygiene, wearing appropriate clothes, good eye contact, anxious, cooperative Cooperation: Participating/engaged Psychomotor Behavior: Psychomotor normal Mood:Ok Affect and affective range: congruent with stated mood Thought Process: Goal directed Thought Content: Reality oriented Speech: Normal tone and pace Suicidal Ideation:Denies Homicidal Ideation: Denies Hallucinations: Denies Delusions: None Impulse Control: Limited Insight and Judgment: Limited insight and judgment Memory: Limited Attention: attentive Orientation: Alert, oriented Diagnoses: (1)Bipolar disorder Treatment Plan DC 1013 Continue home meds Zyprexa 5mg po QHS PSYCHOTHERAPY: Supportive psychotherapy provided MEDICAL: Per primary team DELIRIUM PRECAUTIONS: Please re-orient patient frequently, keep lights on during the day, and minimize benzodiazepines and opiates as these medications could worsen patient's confusion. TILER'S ASSISTANT: Per medical team DISPOSITION: Do not recommend acute psychiatric inpatient treatment. [facility] will provide patient with psychiatric outpatient resources. Will sign off. Thank you for the consult. Case staffed with Dr. Borges Medications and Allergies Medications and Allergies Allergies Allergy/AdvReac Type Severity Reaction Status Date / Time mushroom Allergy Swelling Verified 12/21/20 19:28 latex AdvReac DRY MOUTH Verified 12/21/20 19:28 / LOCAL IRRITATION Home Medications Medication Instructions Recorded Confirmed Last Taken Type Albuterol Sulfate 90 mcg INHALATION Q8HR PRN 06/13/20 03/03/21 Unknown History Depakote ER 1,500 mg PO QHS 06/13/20 03/03/21 1 Week Ago History ~09/07/20 SEROquel 300 mg PO BID 06/13/20 03/03/21 1 Week Ago History ~09/07/20 metFORMIN 1,500 mg PO QHS 06/13/20 03/03/21 1 Week Ago History ~09/07/20 OLANzapine [ZyPREXA] 2.5 mg PO QDAY #30 tablet 09/14/20 03/03/21 Unknown Rx Zoloft 50 mg PO DAILY #30 12/21/20 03/03/[address] [Depakote Dr] 250 mg PO TID #90 tablet 01/20/21 03/03/21 Unknown Rx OLANzapine [ZyPREXA] 5 mg PO QHS 30 Days #30 tablet 07/26/21 Unknown Rx Mental Status Exam - Vital signs Last Vital Signs Temp 98.0 F 07/25/21 22:57 Pulse 79 07/25/21 23:00 Resp 14 07/25/21 23:00 BP 133/73 07/25/21 23:00 Pulse Ox 100 07/25/21 23:00 Results Result Diagrams: 07/25/21 22:27 07/25/21 22:26 Abnormal lab results 07/25/21 07/25/21 07/25/21 Range/Units 22:26 22:26 22:27 Lymph % (Auto) 40.5 H (13.4-35.0) % [place] % (Auto) 8.7 H (0.0-7.3) % [place] # (Auto) 0.9 H (0.0-0.8) K/mm3 Ur Specific [place] (1.003-1.030) Salicylates < 0.3 L (2.8-20.0) mg/dL Acetaminophen 5.0 L (10.0-30.0) ug/mL 07/25/21 Range/Units 22:56 Lymph % (Auto) (13.4-35.0) % [place] % (Auto) (0.0-7.3) % [place] # (Auto) (0.0-0.8) K/mm3 Ur Specific [place] 1.033 H (1.003-1.030) Salicylates (2.8-20.0) mg/dL Acetaminophen (10.0-30.0) ug/mL All other labs normal.
[2021-07-26] MEDS ORDERED: HALOPERIDOL LACTATE 5 MG/1 ML INJ IM PRN (15:51)
[2021-07-26 20:05] VITALS: BP 108/65
--- NOTE | 2021-07-26 20:20 | Emergency Department Report ---
Blank Doc - Documentation Documentation: 26-year-old who has been cleared for discharge by psych. Prescriptions as per mental health. Positive amphetamine abuse
== END 2021-07-26 20:36 | disposition home or self-care (01) ==
LOC: ED 21:07
DX: R41.82 Altered mental status, unspecified (principal); Z91.041 Radiographic dye allergy status; Z91.018 Allergy to other foods; J45.909 Unspecified asthma, uncomplicated
CPT/HCPCS: 36415; 80048; 80307; 81001; 84703; 85025; 96372; 99284; J1630; J3486; 80320; G0480